=== PATIENT | female | born 1980 | race Caucasian/White ===

== ENCOUNTER → 2016-07-01 | Outpatient (CLI) | payer BC ==
[~2016-07-01] MED LIST: ACET-1311 PO; CETI10TA84 PO; FIBER TAB PO; IBUP-1050 PO; LEVO25CA2 PO; LEVOIUD TOP; MELO7.5T5 PO; MULT-506 PO; OMEG10007 PO; PRLSR20 PO; ZNTT/150 PO
[2016-07-01 13:48] LABS: BASO % 0.7 %; BASO ABS # 0.04 K/uL (0-0.2); COMPLETE YES; EOS % 1.4 %; HEMATOCRIT 38.8 % (37-47); LYMPH % 36.6 %; LYMPH ABS # 2.02 K/uL (1.2-3.4); MEAN CELL VOLUME 92.6 fL (80-100); MEAN CORPUSCULAR HEMOGLOBIN 29.8 pg (25-34); MEAN CORPUSCULAR HGB CONC 32.2 g/dl (32-36); MEAN PLATELET VOLUME 11.4 fL (7.4-10.4); MONO % 8.2 %; NEUT % 53.1 %; PLATELET COUNT 317 K/uL (130-400); RED BLOOD COUNT 4.19 M/uL (4.2-5.4); WHITE BLOOD COUNT 5.52 K/uL (4.8-10.8)
[2016-07-01 14:10] LABS: ALB/GLOB RATIO 1.1 (0.9-2); ALKALINE PHOSPHATASE 75 U/L (45-117); ALT/SGPT 22 U/L (12-78); AMYLASE 49 U/L (25-115); AST/SGOT 15 U/L (15-37); BLOOD UREA NITROGEN 8 mg/dl (7-18); BUN/CREATININE RATIO 10.9 (10-20); CALCIUM 9.2 mg/dl (8.5-10.1); CARBON DIOXIDE 28 mmol/L (21-32); CHLORIDE 107 mmol/L (98-107); CREATININE 0.77 mg/dl (0.60-1.20); GLUCOSE 79 mg/dl (70-99); POTASSIUM 3.7 mmol/L (3.5-5.1); SODIUM 142 mmol/L (136-145)
== END | disposition home or self-care (01) ==
LOC: C.LABSPEC 13:10
PROVIDERS: ATTEND Family Medicine
DX: R10.84 Generalized abdominal pain (principal)

== ENCOUNTER → 2016-12-26 | Outpatient (CLI) | payer BC ==
[2016-12-26 14:12] LABS: BASO % 0.4 %; BASO ABS # 0.03 K/uL (0-0.2); COMPLETE YES; EOS % 1.6 %; HEMATOCRIT 37.8 % (37-47); IG% 0.3 %; LYMPH % 27.8 %; LYMPH ABS # 2.21 K/uL (1.2-3.4); MEAN CELL VOLUME 88.1 fL (80-100); MEAN CORPUSCULAR HEMOGLOBIN 29.6 pg (25-34); MEAN CORPUSCULAR HGB CONC 33.6 g/dl (32-36); MONO % 6.3 %; NEUT % 63.6 %; PLATELET COUNT 319 K/uL (130-400); RED BLOOD COUNT 4.29 M/uL (4.2-5.4); WHITE BLOOD COUNT 7.94 K/uL (4.8-10.8)
[2016-12-26 14:44] LABS: LYME DISEASE AB IGG NEG (NEG); LYME DISEASE AB IGM NEG (NEG)
[2016-12-26 16:48] LABS: ALT/SGPT 22 U/L (12-78); BLOOD UREA NITROGEN 12 mg/dl (7-18); BUN/CREATININE RATIO 15.5 (10-20); CALCIUM 9.3 mg/dl (8.5-10.1); CARBON DIOXIDE 25 mmol/L (21-32); CHLORIDE 104 mmol/L (98-107); CHOLESTEROL 194 mg/dl (0-200); CREATININE 0.75 mg/dl (0.60-1.20); GLUCOSE 89 mg/dl (70-99); POTASSIUM 4.6 mmol/L (3.5-5.1); SODIUM 137 mmol/L (136-145); TRIGLYCERIDES 96 mg/dl (0-150); VERY LOW DENSITY LIPOPROT CALC 19 mg/dl
[2016-12-26 16:56] LABS: ALB/GLOB RATIO 0.9 (0.9-2); ALKALINE PHOSPHATASE 83 U/L (45-117); AST/SGOT 21 U/L (15-37); CHOLESTEROL/HDL RATIO 3.4; HDL CHOLESTEROL 57 mg/dl; LDL CHOLESTEROL CALCULATED 118 mg/dl
== END | disposition home or self-care (01) ==
LOC: C.LABSPEC 13:48
PROVIDERS: ATTEND Family Medicine
DX: Z00.00 Encounter for general adult medical examination without abnormal findings (principal); R12 Heartburn; R53.83 Other fatigue; E78.2 Mixed hyperlipidemia

== ENCOUNTER → 2017-01-26 | Outpatient (CLI) | payer BC ==
[2017-01-26 19:05] LABS: THYROID STIMULATING HORMONE 1.6 uIu/ml (0.300-4.500)
== END | disposition home or self-care (01) ==
LOC: C.LABSPEC 17:47
PROVIDERS: ATTEND Family Medicine
DX: E03.9 Hypothyroidism, unspecified (principal)

== ENCOUNTER 2017-03-03 09:57 | Observation (INO) | payer BC ==
[2017-02-07 14:34] VITALS: Ht 160 cm; Wt 99.2 kg
--- NOTE | 2017-02-07 15:05 | PAT Medication Instructions ---
Service Date Feb 07, 2017. Current Home Medication List Acetaminophen (Tylenol), 650 MG PO PRN Cetirizine (Zyrtec), 10 MG PO QAM Fish Oil (Carmel-3), 1 CAP PO QAM Ibuprofen (Advil), 800 MG PO PRN Levonorgestrel (Iud) (Mirena), 1 TOP IUD Levothyroxine Sodium (Tirosint), 25 MCG PO QAM Multivitamin (Multivitamin), 1 TAB PO HS Omeprazole (Prilosec), 20 MG PO QAM Ranitidine (Zantac), 150 MG PO QPM PRN for RN [Fiber Tab], 1 TAB PO QAM Medication Instructions For Your Scheduled Surgery Levonorgestrel (Iud) (Mirena), 1 TOP IUD (continue as directed) - Hold the following medications 2 weeks prior to surgery: Fish Oil (Carmel-3), 1 CAP PO QAM - Check with surgeon for instructions: Ibuprofen (Advil), 800 MG PO PRN - Hold the following medications the morning of surgery: Cetirizine (Zyrtec), 10 MG PO QAM [Fiber Tab], 1 TAB PO QAM - Take the following medications the morning of surgery with a sip of water: Omeprazole (Prilosec), 20 MG PO QAM Levothyroxine Sodium (Tirosint), 25 MCG PO QAM Acetaminophen (Tylenol), 650 MG PO PRN (okay to take up to 4 hours prior to surgery if needed) If you have any questions please call us at [phone] or [phone] or [phone]
[2017-02-07 15:35] LABS: PTT PATIENT 27.6 SECONDS (21.0-31.0)
--- NOTE | 2017-02-07 15:50 | DIAGNOSTIC IMAGING REPORT ---
CHEST 2 VIEWS ROUTINE CLINICAL HISTORY: 36 years-old Female presenting with preadmission chest x-ray. TECHNIQUE: PA and lateral views of the chest were obtained. COMPARISON: None. FINDINGS: Cardiomediastinal silhouette normal. Lungs and pleural spaces clear. Osseous structures normal. Cholecystectomy clips noted. IMPRESSION: 1. No acute cardiopulmonary disease. Electronically signed by: Adrian Malone M.D. 02/07/2017 3:48 PM Dictated Date/Time: 02/07/2017 3:47 PM
--- NOTE | 2017-03-02 19:38 | History and Physical ---
History & Physical Date Mar 02, 2017. Chief Complaint Left ankle pain and flat foot. History of Present Illness The patient is a 36 year old female with complaints of an 8-10 year hx of worsening flat foot of the left ankle/foot and increasing pain at the medial and lateral aspects of the hindfoot. She was treated conservatively with bracing and PT but failed conservative tx. She is now being set up for surgical tx. Past Medical/Surgical History PMH: HTN, hypercholesterolemia, hypothyroidism, acid reflux, obesity. Past surgical hx: cholecystectomy Social hx: denies tobacco use. Allergies Coded Allergies: Amoxicillin (Verified Allergy, Unknown, RASH RADHA UPSET, 02/07/17) Clavulanic Acid (Verified Allergy, Unknown, RASH GI UPSET, 02/07/17) Home Medications Scheduled Acetaminophen (Tylenol), 650 MG PO PRN Cetirizine (Zyrtec), 10 MG PO QAM Fish Oil (Pioneer-3), 1 CAP PO QAM Ibuprofen (Advil), 800 MG PO PRN Levonorgestrel (Iud) (Mirena), 1 TOP IUD Levothyroxine Sodium (Tirosint), 25 MCG PO QAM Multivitamin (Multivitamin), 1 TAB PO HS Omeprazole (Prilosec), 20 MG PO QAM [Fiber Tab], 1 TAB PO QAM Scheduled PRN Ranitidine (Zantac), 150 MG PO QPM PRN for RN Physical Examination Skin: warm/dry, no rash Eyes: normal inspection ENT: normal ENT inspection Head: normocephalic, atraumatic Neck: supple, no adenopathy, trachea midline Respiratory/Chest: lungs clear, normal breath sounds, no respiratory distress Cardiovascular: regular rate, rhythm, no edema, no murmur Abdomen / GI: normal bowel sounds, non tender Extremities: + pertinent finding (Left ankle: pes planovalgus deformity. Prominent medial navicular. Tender at the medial navicular and the sinus tarsi. Decreased left ankle ROM, particularly with dorsiflexion. Weakness with inversion.) Neurologic/Psych: no motor/sensory deficits, alert, oriented x 3 Diagnosis Left painful pes planovalgus deformity. Left accessory navicular bone Left achilles contracture Plan of Treatment Recommend a left Posterior tibial tendon advancement with Arthrex biotenodesis screw, resection accessory navicular, medializing calcaneal osteotomy, lateral column lengthening with autograft, left iliac crest bone graft harvest, perc. TAMIKO. All potential risks, benefits, complications, alternatives, and rehab have been discussed with the patient and she wishes to proceed. She will be scheduled for 03.03.17. ASA 81 mg BID x 6 wks for DVT prophylaxis.
[~2017-03-03] VITALS: Ht 160 cm; Wt 99.2 kg
--- NOTE | 2017-03-03 09:49 | History & Physical Bridge Note ---
H&P Re-Evaluation Bridge Note: I have examined the patient, reviewed the History & Physical and in the interval since the performance of the History & Physical I have noted the following changes of clinical significance: No changes noted
[~2017-03-03 09:57] MED LIST changes: +ATROPINE SULFATE 0.1 MG/ML 5ML SYR IV PRN; +BUPIVACAINE 0.5 % 5 MG/1 ML PF 10ML VIAL ONE; +CLINDAMYCIN 600 MG/54 ML D5W IV SCH; +EpHEDrine SULFATE INJ 50 MG/ML AMP IV PRN; +LABETALOL HCL IV 5 MG/ML 20ML IV PRN; +LACTATED RINGER'S 1000ML 1,000 ML IV SCH; +LEVO1IUD2 TOP; -LEVOIUD TOP; -MELO7.5T5 PO; +MEPERIDINE HCL 25 MG/ML CARP IV PRN; +ONDANSETRON INJ 2 MG/ML 2 ML VIAL IV PRN
[2017-03-03 10:25] VITALS: BP 135/94; PULSE 82; TEMP 36.8; O2SAT 94
[2017-03-03 10:45] LABS: BASO % 0.4 %; BASO ABS # 0.03 K/uL (0-0.2); EOS % 1.5 %; HEMATOCRIT 35.9 % (37-47); HEMOGLOBIN 12.2 g/dL (12.0-16.0); LYMPH % 29.7 %; LYMPH ABS # 2.04 K/uL (1.2-3.4); MEAN CELL VOLUME 87.6 fL (80-100); MEAN CORPUSCULAR HEMOGLOBIN 29.8 pg (25-34); MEAN PLATELET VOLUME 10.7 fL (7.4-10.4); MONO % 6.3 %; MONO ABS # 0.43 K/uL (0.11-0.59); NEUT % 62.1 %; NEUT ABS # 4.26 K/uL (1.4-6.5); PLATELET COUNT 288 K/uL (130-400); RED CELL DISTRIBUTION WIDTH CV 13.5 % (11.5-14.5); RED CELL DISTRIBUTION WIDTH SD 43.2 fL (36.4-46.3); WHITE BLOOD COUNT 6.86 K/uL (4.8-10.8)
[2017-03-03 11:08] LABS: CALCIUM 8.6 mg/dl (8.5-10.1); CREATININE 0.7 mg/dl (0.60-1.20); POTASSIUM 3.8 mmol/L (3.5-5.1)
[2017-03-03] MEDS ORDERED: DEXAMETHASONE SOD INJ 4 MG/ML VIAL ONE (11:13)
[2017-03-03] MEDS ORDERED: ONDANSETRON INJ 2 MG/ML 2 ML VIAL ONE (11:13)
[2017-03-03] MEDS ORDERED: MIDAZOLAM HCL 1 MG/ML 2ML VIAL ONE (11:13)
[2017-03-03] MEDS ORDERED: PROPOFOL IV EMULSION 10 MG/ML 20 ML VIAL IV ONE ×3 (11:13→16:02)
[2017-03-03] MEDS ORDERED: ROCURONIUM BROMIDE 10 MG/ML 5 ML VIAL IV ONE (11:13)
[2017-03-03] MEDS ORDERED: FENTANYL CITRATE INJ 50 MCG/1 ML 2 ML VIAL ONE ×5 (11:13→18:04)
[2017-03-03] MEDS ORDERED: BACITRACIN 50000 UNIT VIAL ONE (13:15)
[2017-03-03] MEDS ORDERED: GELATIN SPONGE SZ 100 ONE ×2 (13:16→13:51)
[2017-03-03] MEDS ORDERED: THROMBIN FOR SOLN 20000 UNIT KIT ONE (13:16)
[2017-03-03] MEDS ORDERED: HYDROmorphone INJ 2 MG/ML SYR/VIAL ONE (13:52)
[2017-03-03] MEDS ORDERED: BUPIVACAINE/EPINEPHRINE 0.5% MPF 1:200,000 30 ML VIAL ONE (14:05)
--- NOTE | 2017-03-03 15:41 | DIAGNOSTIC IMAGING REPORT ---
ADDENDUM Additional images were performed following completion of the prior examination. Total fluoroscopy time is 28 seconds. 6 fluoroscopic spot images are identified. There again noted 2 screws through the calcaneal osteotomy. There is also a vinny overlying the midfoot. Electronically signed by: Raheem Mijares M.D. 03/03/2017 4:34 PM Dictated Date/Time: 03/03/2017 4:32 PM ORIGINAL REPORT L ANKLE 2 VIEWS CLINICAL HISTORY: Calcaneal reconstruction. COMPARISON STUDY: None. FINDINGS: Total fluoroscopy time is 22 seconds. 3 fluoroscopic spot images of the ankle. There are 2 screws transfixing the calcaneal fracture. The hardware appears intact. The alignment is near-anatomic. There are posterior skin gamal. IMPRESSION: Fluoroscopy provided for calcaneal reconstruction. Electronically signed by: Raheem Mijares M.D. 03/03/2017 3:40 PM Dictated Date/Time: 03/03/2017 3:39 PM
[2017-03-03] MEDS: FENTANYL CITRATE INJ 50 MCG/1 ML 2 ML VIAL IV PRN ×3 (16:42→16:55)
--- NOTE | 2017-03-03 16:48 | [facility] Post Operative Brief Note ---
Immediate Operative Summary Operative Date Mar 03, 2017. Pre-Operative Diagnosis Left Posterior Tibial Tendon Dysfunction Left painful pes planovalgus deformity. Left accessory navicular bone Left achilles contracture Post-Operative Diagnosis Left Posterior Tibial Tendon Dysfunction Left painful pes planovalgus deformity. Left accessory navicular bone Left achilles contracture Procedure(s) Performed 1. Left Ankle Posterior Tibial Tendon Advancement with Arthrex Biotenodesis Screw 2. Resection Accessory Navicular 3. Lateral Column Lengthening with Autograft 4. Medializing Calcaneal Osteotomy 5. Percutaneous TendoAchilles Lengthening 6. Left Iliac Crest Bone Graft [place] Surgeon Dr. Felipe Wilson Pump Stitcher Surgeon(s) Hitesh Seth PA-C Estimated Blood Loss 5cc Findings See Dict Specimens none per surgeon Drains None Anesthesia GLMA w/ popliteal block Complication(s) None Disposition Recovery Room / PACU
[2017-03-03] MEDS ORDERED: NO NSAIDS SCH (17:00)
[2017-03-03] MEDS ORDERED: ONDANSETRON INJ 2 MG/ML 2 ML VIAL IV PRN (17:00)
[2017-03-03] MEDS ORDERED: MAGNESIUM HYDROXIDE SUSP 30 ML UDC PO PRN (17:00)
[2017-03-03] MEDS ORDERED: RANITIDINE HCL 150 MG TAB PO PRN (17:00)
[2017-03-03] MEDS ORDERED: MoRPHine SULFATE 4 MG/ML 1 ML CARP\\VIAL IV PRN (17:00)
[2017-03-03] MEDS ORDERED: LEVONORGESTREL TOP SCH (17:00)
[2017-03-03] MEDS: HYDROmorphone INJ 1 MG/ML SYR IV PRN ×4 (17:15→17:36)
--- NOTE | 2017-03-03 17:53 | DIAGNOSTIC IMAGING REPORT ---
L ANKLE 2 VIEWS CLINICAL HISTORY: post-op CALCANEAL OSTEOTOMY COMPARISON: None. DISCUSSION: The fine bony details obscured by overlying plaster cast. There are postsurgical changes of a calcaneal osteotomy which has been fixated with 2 screws. IMPRESSION: Postsurgical changes of a calcaneal osteotomy which has been fixated with 2 screws. Electronically signed by: Lopez Tsang M.D. 03/03/2017 5:52 PM Dictated Date/Time: 03/03/2017 5:52 PM
--- NOTE | 2017-03-03 17:53 | DIAGNOSTIC IMAGING REPORT ---
L FOOT MIN 3 VIEWS ROUTINE CLINICAL HISTORY: Postoperative examination COMPARISON: None. DISCUSSION: 3 views are provided for interpretation. The fine bony details obscured by an overlying plaster cast. 2 screws are visualized within the calcaneus. There is evidence of a calcaneal osteotomy. IMPRESSION: Postsurgical changes of a calcaneal osteotomy with 2 calcaneal screws Electronically signed by: Lopez Tsang M.D. 03/03/2017 5:51 PM Dictated Date/Time: 03/03/2017 5:50 PM
--- NOTE | 2017-03-03 17:54 | Anesthesiology Progress Note ---
Anesthesia Post Op Note Date & Time Mar 03, 2017 at 17:53 Vital Signs Pain Intensity: 5 Vital Signs Past 12 Hours Date Time Temp Pulse Resp B/P (MAP) Pulse Ox O2 Delivery O2 Flow Rate FiO2 03/03/17 17:40 36.6 91 12 142/76 100 Nasal Cannula 2 03/03/17 17:30 99 12 144/81 100 Nasal Cannula 2 03/03/17 17:20 102 14 125/81 100 Nasal Cannula 2 03/03/17 17:10 106 15 122/86 100 Nasal Cannula 2 03/03/17 17:00 97 12 121/87 100 Oxymask 10 03/03/17 16:50 98 10 139/93 100 Oxymask 10 03/03/17 16:40 104 16 130/87 100 Oxymask 10 03/03/17 16:30 36.4 99 14 131/94 99 Oxymask 10 03/03/17 10:25 36.8 82 16 135/94 (108) 94 Room Air Notes Mental Status: alert / awake / arousable, participated in evaluation Pt Amnestic to Procedure: Yes Nausea / Vomiting: adequately controlled Pain: adequately controlled Airway Patency, RR, SpO2: stable & adequate BP & HR: stable & adequate Hydration State: stable & adequate Anesthetic Complications: no major complications apparent
--- NOTE | 2017-03-03 18:26 | OPERATIVE REPORT ---
DATE OF OPERATION: 03/03/2017 PREOPERATIVE DIAGNOSES: 1. Left posterior tibial tendon dysfunction grade 2. 2. Accessory navicular. 2. Achilles contracture. 3. Pes planus. 4. Left foot pain. POSTOPERATIVE DIAGNOSES: Same. PROCEDURE: 1. Left posterior tibial tendon advancement with the Arthrex Bio-Tenodesis screw. 2. Resection of accessory navicular. 3. Medializing calcaneal osteotomy with screw fixation. 4. Lateral column lengthening of the calcaneus with autograft 5. Percutaneous tendon Achilles lengthening. 6. Left iliac crest bone graft harvest. SURGEON: Felipe Wilson DO. AERONAUTICAL ENGINEER: Hitesh Seth PA-C, who was present for patient positioning, sterile prep and drape, management of retractors and instruments. He was present through the critical portions of the case including wound closure, application of sterile dressing and transport of the patient to recovery. ANESTHESIA: General LMA with popliteal block. SPECIMENS: None. DRAINS: None. COMPLICATIONS: None. BLOOD LOSS: 5 mL. PERTINENT HISTORY: This is a 36-year-old woman who had progressive chronic painful left hindfoot pain and deformity. She has attempted and failed conservative management for the last several years including shoe modification, activity modification, shoe inserts, anti-inflammatories, rest, physician directed home exercises, ultrasound and use of a brace. She also had an MRI which demonstrated chronic changes associated to the posterior tibial tendon. The patient was then scheduled for surgery as indicated. All potential risks, benefits, complications, alternatives, rehab, potential for incomplete relief of symptoms, need for further surgery, DVT, PE, , persistent pain, swelling, scarring, weakness, neurovascular injury, wound complications, hardware failure, nonunion, malunion, need for further surgery discussed with the patient. The patient decided to proceed with procedure as indicated. DESCRIPTION OF PROCEDURE: After popliteal block was administered in the preop holding area, the patient was then taken to the operative suite, placed supine on the operating room table. After reviewing the consent and identification of proper operative site, the patient was anesthetized, LMA was placed. Tourniquet was placed high on the left thigh over cast padding. Next, the left iliac crest and left lower extremity were then sterilely prepped and draped in usual fashion, elevated, and exsanguinated with an Esmarch bandage and tourniquet inflated to 350 mmHg. Next, the left foot was held in neutral dorsiflexion and a 3-part percutaneous tendon Achilles lengthening was then performed with 11 blade scalpel. Next, the small stab incision was then closed using a skin stapler. Next, a 15 blade scalpel was used to make an incision in oblique fashion on the posterolateral aspect of the calcaneal tuberosity at which point, a 15 blade was then used to deepen this oblique skin incision through the subcutaneous tissue to the level of the periosteum. Next, Hohmann retractors were placed both superior, posterior and inferior in the lateral aspect of the calcaneus. The periosteum was then sharply elevated with a 15 blade scalpel and a Torres elevator followed by creation of a sliding osteotomy of the calcaneus. The calcaneus was then shifted medially approximately 4-5 mm and then fixed in place with a single 7.3 mm, cannulated screw placed under live fluoroscopic assistance. This was placed through a small stab incision in the tuberosity of the heel. This was then irrigated with sterile normal saline and a small stab incision in the heel was then closed using skin stable. Next, the 15 blade was used to make an incision centered over the anterior process of the calcaneus extending proximally and distally. This incision was then deepened through subcutaneous tissue. Meticulous hemostasis was achieved with electrocautery. Full thickness skin flaps were developed. The extensor digitorum brevis then incised in line with skin incision and then elevated both superiorly and inferiorly. The sinus tarsi was then entered and a Hohmann retractor was placed in the sinus tarsi followed by placement of Bell retractor between the peroneal tendons and the calcaneus. Next, an osteotomy line was then measured approximately 1.5 cm proximal to the calcaneal cuboid joint and then a sagittal saw was then used to create an osteotomy in the lateral aspect of the calcaneus. Next, 2 smooth osteotomes then placed into the osteotomy site opening the osteotomy and then a cervical lamina underwear trimmer was then placed into the osteotomy. Next, the foot was held in neutral dorsiflexion and the appropriate opening wedge for the lateral calcaneal osteotomy was then measured and noted to be an 8 mm wedge. Next, a moist lap was then placed over the lateral aspect of the left foot. A 22 gauge needle was then used to inject approximately 12 mL of 0.5% Marcaine with epinephrine into the left iliac crest region followed by incision with 15 blade scalpel and use of electrocautery to maintain hemostasis. Next, the fascia was then incised in line with the incision, retracted with a Josiahtlaner retractor revealing the iliac crest. Next, a trapezoidal iliac crest autograft was then measured and then resected using a sagittal saw. This wound was irrigated with sterile normal saline, Gelfoam and thrombin were placed into the harvest site and cancellous bone was then also harvested from the iliac crest and placed in a small sterile cup. Next, after the Gelfoam and thrombin were placed into the void in the left iliac crest. The fascia was then closed using interrupted #1 Vicryl sutures followed by injection into the graft harvest site with 1 mL of Duramorph and 4 mL 0.5% Marcaine with epinephrine. Next, the irrigation was performed of the left iliac crest followed by closure of the dermis with 2-0 Vicryl sutures and then closure of the skin with Monocryl, Dermabond and Adaptic gauze. Next, sterile compressive dressing was applied overwrapped with a Tegaderm. Next, this trapezoidal graft was then placed in the lateral column lengthening site, lateral calcaneus was impacted in place with a bone tamp and mallet, followed by bone grafting with surrounding cancellous bone graft. This was then followed by carefully irrigation with sterile normal saline and closure of the extensor digitorum brevis over the graft site with 2-0 Vicryl suture. The peroneal tendons were unaffected by the procedure. Next, the dermis was then closed using buried interrupted 3-0 Vicryl and skin was closed with 4-0 nylon. Next, the heel slide osteotomy site was then irrigated with sterile normal saline and the dermis was closed using buried interrupted 3-0 Vicryl, skin was closed using 4-0 nylon. Next, the 15 blade was then used to make an incision over the medial aspect of the foot at the distal aspect of the posterior tibial tendon insertion. This incision was deepened through subcutaneous tissue. Meticulous hemostasis was achieved with electrocautery. Full thickness skin flaps were developed followed by use of electrocautery to cauterize crossing vessels at the incision site. Next, the flexor tendon sheath of the posterior tibial tendon was then incised to the level of the navicula. Next, the posterior tibial tendon was then sharply elevated from the medial navicula with a 15 blade scalpel. There was noted to be significant damage and scarring of the distal aspect of the posterior tibial tendon with hypertrophic tendonopathy of the posterior tibial tendon. Next, the accessory navicular noted within the posterior tibial tendon was then carefully shelled out of the tendon. This was then passed off. The wound was copiously irrigated with sterile normal saline followed by tubularization of the posterior tibial tendon with a 2-0 FiberWire suture using a Krackow locking loop stitch. This was then passed through a 7 mm graft sizer and then the medial aspect of the navicular was then rongeured and decorticated with a rongeur. This was irrigated with sterile normal saline followed by placement of a Beath pin under live fluoroscopic assistance noting the correct location to the medial navicular. This was passed through and through the navicular and the tails of the suture passed into the posterior tibial tendon were then passed through the eyelet of the Beath pin which was then driven through and through the navicular at the dorsum of the foot and then withdrawn. Next, the tendon was marked at 10, 15 and 20 mm depth and after drilling of a 23 mm transport pilot hole in the medial navicular, the tendon was then passed into the medial navicular under tension and clear visualization noting approximately 20 mm of tendon into the medial navicular. This was then stabilized using a single 7 mm x 23 mm Arthrex Bio-Tenodesis screw. Next, the lateral column screw was then placed using a 2.5 mm lag screw technique with a fully threaded 4.0 cancellous screw placed through the lateral aspect at the calcaneus under live fluoroscopic assistance. Next, final irrigation was performed with sterile normal saline. The medial incision was then closed using 2-0 Vicryl to close the flexor tendon sheath. The dermis was closed using buried interrupted 3-0 Vicryl, skin was closed with 4-0 nylon. A small lateral incision was then closed with 4-0 nylon. Next, final x-rays obtained. Sterile compressive dressing was applied followed by placement of bulky Kimani Tidwell plaster splint. The foot was held in slight gravity equinus until firm and then the tourniquet was released, and the patient was awakened and taken to recovery in stable condition. I attest to the content of the Intraoperative Record and any orders documented therein. Any exception s are noted below.
[2017-03-03 18:30] VITALS: BP 116/74; PULSE 95; TEMP 36.8; O2SAT 100
[2017-03-03] MEDS ORDERED: MoRPHine SULFATE 4 MG/ML 1 ML CARP\\VIAL ONE (18:51)
[2017-03-03 19:10] VITALS: BP 132/83; PULSE 97; TEMP 36.5; O2SAT 100
[2017-03-03] MEDS ORDERED: HYDROmorphone INJ 1 MG/ML SYR IV PRN (19:45)
[2017-03-03] MEDS ORDERED: KETOROLAC TROMETHAMINE 30 MG/ML VIAL IV ONE (20:00)
[2017-03-03 20:27] VITALS: BP 115/77; PULSE 100; TEMP 36.6; O2SAT 100
[2017-03-03] MEDS: POTASSIUM CHLORIDE INJ 10 MEQ in SODIUM CHLORIDE 0.9% 1000ML 1,000 ML IV SCH (20:49)
[2017-03-03] MEDS: DOCUSATE SODIUM 100 MG CAP PO SCH (20:51)
[2017-03-03] MEDS: ACETAMINOPHEN IV 1,000 MG in EMPTY BAG 0 ML IV SCH (20:52)
[2017-03-03] MEDS ORDERED: MULTIVITAMIN TAB PO SCH (21:00)
[2017-03-03] MEDS: CLINDAMYCIN IV 600 MG in DEXTROSE 5% 50ML 50 ML IV SCH (21:30)
[2017-03-03 21:39] VITALS: BP 110/77; PULSE 89; TEMP 36.5; O2SAT 96
[2017-03-03 23:05] VITALS: BP 104/69; PULSE 86; TEMP 36.6; O2SAT 100
[2017-03-03] MEDS: OXYCODONE HCL IR 5 MG TAB (IMMEDIATE RELEASE) PO PRN (23:27)
[2017-03-04 03:45] VITALS: BP 106/69; PULSE 78; TEMP 36.6; O2SAT 99
[2017-03-04] MEDS: ACETAMINOPHEN IV 1,000 MG in EMPTY BAG 0 ML IV SCH ×2 (03:52→12:01)
[2017-03-04] MEDS: OXYCODONE HCL IR 5 MG TAB (IMMEDIATE RELEASE) PO PRN ×3 (04:52→13:07)
[2017-03-04] MEDS ORDERED: LEVOTHYROXINE 25 MCG TAB PO SCH (06:00)
[2017-03-04 06:06] LABS: HEMATOCRIT 32.9 % (37-47); HEMOGLOBIN 10.8 g/dL (12.0-16.0); MEAN CELL VOLUME 88.9 fL (80-100); MEAN CORPUSCULAR HEMOGLOBIN 29.2 pg (25-34); MEAN CORPUSCULAR HGB CONC 32.8 g/dl (32-36); MEAN PLATELET VOLUME 10.8 fL (7.4-10.4); PLATELET COUNT 261 K/uL (130-400); RED CELL DISTRIBUTION WIDTH CV 13.7 % (11.5-14.5); RED CELL DISTRIBUTION WIDTH SD 44.6 fL (36.4-46.3); WHITE BLOOD COUNT 11.35 K/uL (4.8-10.8)
[2017-03-04] MEDS: CLINDAMYCIN IV 600 MG in DEXTROSE 5% 50ML 50 ML IV SCH (06:07)
[2017-03-04] MEDS: POTASSIUM CHLORIDE INJ 10 MEQ in SODIUM CHLORIDE 0.9% 1000ML 1,000 ML IV SCH (06:07)
[2017-03-04 06:32] VITALS: O2SAT 94
[2017-03-04 07:35] VITALS: BP 105/68; PULSE 79; TEMP 36.8; O2SAT 98
--- NOTE | 2017-03-04 08:38 | Orthopedic Progress Note ---
Orthopedic Progress Note Date of Service Mar 04, 2017. Subjective Post OP Day: 1 Reports: feeling well, chest pain Additional Notes: States her pain control is better today. Most of her pain is on the medial aspect of the dressing. No other complaints. Hoping to go home today Objective N/V intact, splint C/D/I, capillary refill less than 2 sec., dressing C/D/I, A& O x3, toes mobile Left iliac crest dressing intact Date Time Temp Pulse Resp B/P (MAP) Pulse Ox O2 Delivery O2 Flow Rate FiO2 03/04/17 07:50 Room Air 03/04/17 07:35 36.8 79 16 105/68 (80) 98 Room Air 03/04/17 06:32 94 Room Air 03/04/17 03:45 36.6 78 16 106/69 (81) 99 Nasal Cannula 2.0 03/03/17 23:30 Nasal Cannula 2.0 03/03/17 23:05 36.6 86 16 104/69 (81) 100 Nasal Cannula 2.0 03/03/17 21:39 36.5 89 18 110/77 (88) 96 Nasal Cannula 2.0 03/03/17 20:27 36.6 100 18 115/77 (90) 100 Nasal Cannula 2.0 03/03/17 19:10 36.5 97 18 132/83 (99) 100 Nasal Cannula 2.0 03/03/17 18:30 100 Nasal Cannula 2.0 03/03/17 18:30 36.8 95 16 116/74 (88) 100 Nasal Cannula 2.0 03/03/17 18:30 100 Nasal Cannula 2.0 03/03/17 18:15 96 12 114/80 100 Nasal Cannula 2 03/03/17 18:00 96 12 129/76 100 Nasal Cannula 2 03/03/17 17:50 96 12 113/76 100 Nasal Cannula 2 03/03/17 17:40 36.6 91 12 142/76 100 Nasal Cannula 2 03/03/17 17:30 99 12 144/81 100 Nasal Cannula 2 03/03/17 17:20 102 14 125/81 100 Nasal Cannula 2 03/03/17 17:10 106 15 122/86 100 Nasal Cannula 2 03/03/17 17:00 97 12 121/87 100 Oxymask 10 03/03/17 16:50 98 10 139/93 100 Oxymask 10 03/03/17 16:40 104 16 130/87 100 Oxymask 10 03/03/17 16:30 36.4 99 14 131/94 99 Oxymask 10 03/03/17 10:25 36.8 82 16 135/94 (108) 94 Room Air Laboratory Results 24 Hours: Test 03/03/17 10:32 03/04/17 05:33 White Blood Count 6.86 K/uL Red Blood Count 4.10 M/uL Hemoglobin 12.2 g/dL 10.8 g/dL Hematocrit 35.9 % 32.9 % Mean Corpuscular Volume 87.6 fL Mean Corpuscular Hemoglobin 29.8 pg Mean Corpuscular Hemoglobin Concent 34.0 g/dl Platelet Count 288 K/uL Mean Platelet Volume 10.7 fL Neutrophils (%) (Auto) 62.1 % Lymphocytes (%) (Auto) 29.7 % Monocytes (%) (Auto) 6.3 % Eosinophils (%) (Auto) 1.5 % Basophils (%) (Auto) 0.4 % Neutrophils # (Auto) 4.26 K/uL Lymphocytes # (Auto) 2.04 K/uL Monocytes # (Auto) 0.43 K/uL Eosinophils # (Auto) 0.10 K/uL Basophils # (Auto) 0.03 K/uL Assessment & Plan Assessment: POD 1 s/p 1. Left posterior tibial tendon advancement with the Arthrex Bio- Tenodesis screw. 2. Resection of accessory navicular. 3. Medializing calcaneal osteotomy with screw fixation. 4. Lateral column lengthening of the calcaneus with autograft 5. Percutaneous tendon Achilles lengthening. 6. Left iliac crest bone graft harvest Plan: PT/OT today Plan for dc to home if pain controlled Inhouse Planning Pain Management: Dilaudid, PO Tylenol, Oxy IR DVT Prophylaxis: TEDs, SCDs, ASA Discharge Planning Discharge Planning: home Pain Management: Oxy IR DVT Prophylaxis: ASA
[2017-03-04] MEDS ORDERED: ASPIRIN 81 MG ECTAB PO SCH (09:00)
[2017-03-04] MEDS ORDERED: PANTOprazole SOD 40 MG TAB PO SCH (09:00)
[2017-03-04] MEDS ORDERED: CALCIUM POLYCARBOPHIL 1 TAB PO SCH (09:00)
[2017-03-04] MEDS: DOCUSATE SODIUM 100 MG CAP PO SCH (09:02)
[2017-03-04] MEDS ORDERED: RXC5 PO (09:03)
[2017-03-04] MEDS ORDERED: ASPEC81 PO (09:03)
[2017-03-04] MEDS ORDERED: PROM25TA9 PO (09:03)
[2017-03-04] MEDS ORDERED: OXYSR10 PO (09:03)
--- NOTE | 2017-03-04 09:11 | Discharge Instructions ---
Discharge Instructions Date of Service Mar 04, 2017. Admission Reason for Admission: Left Ankle Short Achilles Tendon, Pes Planus, Plan Discharge Discharge Diagnosis / Problem: Left Posterior Tibial Tendon Dysfunction Discharge Goals Goal(s): Decrease discomfort, Improve function, Increase independence Activity Recommendations Activity Limitations: per Instructions/Follow-up section Weightbearing Status: Left non-weightbearing . Instructions / Follow-Up Instructions / Follow-Up ACTIVITY RECOMMENDATIONS: Limitations: No weight bearing to affected limb at all times. SPECIAL CARE INSTRUCTIONS: * You can change your left hip dressing in 48 hours. Keep covered with gauze. Trim mesh as it slowly peels off. * Some drainage onto the dressing is normal and is no cause for alarm. * Some swelling is natural especially after walking. * When resting, keep your foot elevated above the level of your heart. * Call [facility] if you notice: -Increased drainage -Fever over 101 degrees F -Severe constant pain BANDAGE: * Leave bandage/cast in place unless otherwise directed. * Keep bandage/cast dry at all times. FOLLOW UP VISIT WITH DR. VILLANUEVA If appointment is not already scheduled: Please call [facility] after you get home today to schedule a follow-up appointment for [address] Villanueva at . Current Hospital Diet Patient's current hospital diet: Regular Diet Discharge Diet Recommended Diet: Regular Diet Procedures Procedures Performed: 1. Left Ankle Posterior Tibial Tendon Advancement with Arthrex Biotenodesis Screw 2. Resection Accessory Navicular 3. Lateral Column Lengthening with Autograft 4. Medializing Calcaneal Osteotomy 5. Percutaneous TendoAchilles Lengthening 6. Left Iliac Crest Bone Graft Belt Pending Studies Studies pending at discharge: no Laboratory Results Lipid Panel Test 12/26/16 09:00 Range/Units Triglycerides Level 96 0-150 mg/dl Cholesterol Level 194 0-200 mg/dl HDL Cholesterol 57 mg/dl Cholesterol/HDL Ratio 3.4 LDL Cholesterol, Calculated 118 mg/dl Medical Emergencies . Who to Call and When: Medical Emergencies: If at any time you feel your situation is an emergency, please call 911 immediately. . Non-Emergent Contact Non-Emergency issues call your: Surgeon Call Non-Emergent contact if: temperature is above 101.5, your pain is not controlled, your pain is worsening, wound has increased drainage, wound has increased redness . "Provider Documentation" section prepared by Hitesh Seth. . VTE Core Measure Inpt VTE Proph given/why not?: Other Anticoagulation [place] Drug Monitoring Program Search Results: patient reviewed within database, no issues identified
[2017-03-04] MEDS ORDERED: ACET-24 PO (10:03)
[2017-03-04 11:32] VITALS: BP 123/81; PULSE 90; TEMP 36.7; O2SAT 95
[2017-03-04 12:52] VITALS: BP 123/81; PULSE 90; TEMP 36.7; O2SAT 95
--- NOTE | 2017-03-05 11:14 | DISCHARGE SUMMARY ---
DISCHARGE DIAGNOSES: Left posterior tibial tendon dysfunction with left painful pes planovalgus deformity, left accessory navicular bone and left Achilles tendon contracture. SECONDARY DIAGNOSES: Hypertension, hypercholesterolemia, hypothyroidism, GERD, obesity. CONSULTS: None. COMPLICATIONS: None. PROCEDURES: 1. Left ankle posterior tibial tendon advancement with Arthrex Bio-Tenodesis screw. 2. Resection of accessory navicular. 3. Lateral column lengthening with autograft. 4. Medializing calcaneal osteotomy. 4. Percutaneous tendo-Achilles lengthening. 5. Left iliac crest bone graft harvesting. BRIEF HISTORY: As dictated in the history and physical. HOSPITAL SUMMARY: The patient was admitted on the above-noted date with the above noted surgery and had the above-noted surgery performed, which she tolerated well. On her first postoperative day, she was stating that her pain control was much better, most of her pain was on the medial aspect of the dressing. She had no other complaints. She was hoping to go home. Neurovascularly, she was intact. Splint was clean, dry and intact. Cap refill is less than 2 seconds. Dressings clean, dry and intact. Toes were mobile. Left iliac crest dressing was intact and benign in appearance. Vital signs were stable. She was afebrile. Hemoglobin was 10.8 and she was started on physical therapy protocol, nonweightbearing on the affected extremity. She remained with adequate pain control and progressed with her PT and it was felt she could be discharged to home and was discharged to home on 03/04/2017. For further review, please see chart. LABORATORY AND X-RAY DATA: As per chart. DISCHARGE INSTRUCTIONS: The patient was discharged to home in satisfactory condition on 03/04/2017. DIET: Regular. ACTIVITY: Weightbearing as tolerated on the left lower extremity. Follow activity recommendation and special care instructions as noted and follow up with Dr. Wilson in 2 weeks. The patient to call for appointment if one has not been made for you. DISCHARGE MEDICATIONS: Acetaminophen 2 tabs p.o. q. 8 hours for 14 days, aspirin 81 mg p.o. daily for 30 days, oxycodone 5-10 mg p.o. q. 4 hours p.r.n., OxyContin 10 mg p.o. b.i.d., Phenergan 25 mg p.o. q. 6 hours p.r.n. nausea. Resume home meds as listed and stop taking her original acetaminophen dosage and ibuprofen.
== END 2017-03-04 13:45 | disposition home or self-care (01) ==
LOC: C.ACU 09:57 → C.3E 10:15 → ENRESERV 17:36
PROVIDERS: ADMIT Orthopaedic Surgery Sports Medicine; ATTEND Orthopaedic Surgery Sports Medicine
DX: M21.41 Flat foot [pes planus] (acquired), right foot (principal); M67.02 Short Achilles tendon (acquired), left ankle; I10 Essential (primary) hypertension; E78.00 Pure hypercholesterolemia, unspecified; E03.9 Hypothyroidism, unspecified; K44.9 Diaphragmatic hernia without obstruction or gangrene; E78.5 Hyperlipidemia, unspecified; M19.90 Unspecified osteoarthritis, unspecified site; K21.9 Gastro-esophageal reflux disease without esophagitis; E66.9 Obesity, unspecified; Z90.49 Acquired absence of other specified parts of digestive tract

== ENCOUNTER 2017-03-28 14:09 | Emergency (ER) | payer BC ==
[~2017-03-28] VITALS: Ht 157.5 cm; Wt 97.1 kg
[~2017-03-28 14:09] MED LIST changes: -RIVA1.5T PO; -TRAM-10 PO
[2017-03-28 14:15] VITALS: Ht 157.5 cm; Wt 97.1 kg
[2017-03-28] MEDS ORDERED: TRAM-10 PO (14:41)
[2017-03-28 14:43] LABS: BASO % 0.3 %; BASO ABS # 0.03 K/uL (0-0.2); EOS % 0.7 %; EOS ABS # 0.08 K/uL (0-0.5); HEMATOCRIT 37.8 % (37-47); HEMOGLOBIN 12.7 g/dL (12.0-16.0); IG# 0.03 K/uL (0.00-0.02); LYMPH % 16.8 %; LYMPH ABS # 1.94 K/uL (1.2-3.4); MEAN CELL VOLUME 87.1 fL (80-100); MEAN CORPUSCULAR HEMOGLOBIN 29.3 pg (25-34); MEAN CORPUSCULAR HGB CONC 33.6 g/dl (32-36); MEAN PLATELET VOLUME 10.6 fL (7.4-10.4); MONO ABS # 0.69 K/uL (0.11-0.59); NEUT % 75.9 %; NEUT ABS # 8.75 K/uL (1.4-6.5); PLATELET COUNT 319 K/uL (130-400); RED CELL DISTRIBUTION WIDTH CV 13.5 % (11.5-14.5); WHITE BLOOD COUNT 11.52 K/uL (4.8-10.8)
[2017-03-28 14:53] LABS: PTT PATIENT 29.6 SECONDS (21.0-31.0)
[2017-03-28 15:01] LABS: CALCIUM 9.3 mg/dl (8.5-10.1); CREATININE 0.75 mg/dl (0.60-1.20); POTASSIUM 3.8 mmol/L (3.5-5.1)
[2017-03-28] MEDS ORDERED: RIVAROXABAN TAB 15 MG TAB PO ONE (15:30)
[2017-03-28] MEDS ORDERED: RIVA1.5T PO (15:30)
[2017-03-28 15:42] VITALS: BP 135/84; PULSE 92; TEMP 37.6; O2SAT 99
--- NOTE | 2017-03-28 19:37 | EMERGENCY ROOM VISIT NOTE ---
History Report prepared by John: Frandy Lfaleur Under the Supervision of: Dr. Brenden Meyers D.O. First contact with patient: 14:19 Chief Complaint: CALF PAIN Stated Complaint: PAIN IN FOOT/CALF, BLOOD CLOT, SENT FROM ULTR History of Present Illness The patient is a 36 year old female who presents to the Emergency Room with complaints of constant left calf pain beginning four days ago. She recently had surgery on her left ankle to lengthen her Achilles tendon a little less than a month ago. She states that she was found to have DVT of the left leg by US today during a follow up appointment with orthopedics. The patient notes that she has an extensive family history of DVT. She denies any recent falls or trauma. She has no history of brain bleeding, coughing up blood, vomiting blood , or hematuria. Pt denies headache, change in vision, fevers, chest pain, shortness of breath, nausea, vomiting, diarrhea, pain with urination, and melena. Source of History: patient Onset: Four days ago Position: leg (left calf) Timing: constant Associated Symptoms: No fevers, No headache, No chest pain, No SOB, No nausea, No vomiting, No melena, No hematochezia, No diarrhea, No urinary symptoms Review of Systems See HPI for pertinent positives & negatives. A total of 10 systems reviewed and were otherwise negative. Past Medical & Surgical Medical Problems: (1) Accessory navicular bone of left foot (2) Achilles tendon contracture, left (3) Left foot pain (4) Pes planus of left foot (5) Posterior tibial tendon dysfunction, left Family History DVT Social History Smoking Status: Never Smoker Current/Historical Medications Scheduled Acetaminophen (Sb Non-Aspirin Extra Stre), 2 TABS PO Q8H Aspirin (Aspirin EC Low Dose), 81 MG PO DAILY Cetirizine (Zyrtec), 10 MG PO QAM Fish Oil (Sherman-3), 1 CAP PO QAM Levonorgestrel (Iud) (Mirena), 1 TOP IUD Multivitamin (Multivitamin), 1 TAB PO HS Omeprazole (Prilosec), 20 MG PO QAM Rivaroxaban (Xarelto), 15 MG PO BID [Fiber Tab], 1 TAB PO QAM Scheduled PRN Ranitidine (Zantac), 150 MG PO QPM PRN for RN Tramadol (Ultram), 50 MG PO Q8H PRN for Pain Allergies Coded Allergies: Amoxicillin (Verified Allergy, Unknown, RASH RADHA UPSET, 03/28/17) Clavulanic Acid (Verified Allergy, Unknown, RASH GI UPSET, 03/28/17) Physical Exam Vital Signs Date Time Temp Pulse Resp B/P (MAP) Pulse Ox O2 Delivery O2 Flow Rate FiO2 03/28/17 15:42 37.6 92 16 135/84 99 Room Air 03/28/17 14:15 36.5 98 17 138/93 100 Room Air Physical Exam GENERAL: Sitting up in bed, alert, well appearing, well nourished, no distress, non-toxic EYE EXAM: normal conjunctiva. OROPHARYNX: no exudate, no erythema, lips, buccal mucosa, and tongue normal and mucous membranes are moist NECK: supple, no nuchal rigidity, no adenopathy, non-tender LUNGS: Clear to auscultation. Normal chest wall mechanics HEART: no murmurs, S1 normal and S2 normal ABDOMEN: abdomen soft, non-tender, normo-active bowel sounds, no masses, no rebound or guarding. BACK: Back is symmetrical on inspection and there is no deformity, no midline tenderness, no CVA tenderness. SKIN: no rashes and no bruising UPPER EXTREMITIES: upper extremities are grossly normal. LOWER EXTREMITIES: Left calf in splint. Left calf larger than right. NEURO EXAM: Normal sensorium, cranial nerves II-XII grossly intact, normal speech, no gross weakness of arms, no gross weakness of legs. Medical Decision & Procedures Laboratory Results 03/28/17 14:30 Red Blood Count 4.34, Mean Corpuscular Volume 87.1, Mean Corpuscular Hemoglobin 29.3, Mean Corpuscular Hemoglobin Concent 33.6, Mean Platelet Volume 10.6, Neutrophils (%) (Auto) 75.9, Lymphocytes (%) (Auto) 16.8, Monocytes (%) (Auto) 6.0, Eosinophils (%) (Auto) 0.7, Basophils (%) (Auto) 0.3, Neutrophils # (Auto) 8.75, Lymphocytes # (Auto) 1.94, Monocytes # (Auto) 0.69, Eosinophils # (Auto) 0.08, Basophils # (Auto) 0.03 03/28/17 14:30 Test 03/28/17 14:30 White Blood Count 11.52 K/uL (4.8-10.8) Red Blood Count 4.34 M/uL (4.2-5.4) Hemoglobin 12.7 g/dL (12.0-16.0) Hematocrit 37.8 % (37-47) Mean Corpuscular Volume 87.1 fL (80-100) Mean Corpuscular Hemoglobin 29.3 pg (25-34) Mean Corpuscular Hemoglobin Concent 33.6 g/dl (32-36) Platelet Count 319 K/uL (130-400) Mean Platelet Volume 10.6 fL (7.4-10.4) Neutrophils (%) (Auto) 75.9 % Lymphocytes (%) (Auto) 16.8 % Monocytes (%) (Auto) 6.0 % Eosinophils (%) (Auto) 0.7 % Basophils (%) (Auto) 0.3 % Neutrophils # (Auto) 8.75 K/uL (1.4-6.5) Lymphocytes # (Auto) 1.94 K/uL (1.2-3.4) Monocytes # (Auto) 0.69 K/uL (0.11-0.59) Eosinophils # (Auto) 0.08 K/uL (0-0.5) Basophils # (Auto) 0.03 K/uL (0-0.2) RDW Standard Deviation 43.0 fL (36.4-46.3) RDW Coefficient of Variation 13.5 % (11.5-14.5) Immature Granulocyte % (Auto) 0.3 % Immature Granulocyte # (Auto) 0.03 K/uL (0.00-0.02) Prothrombin Time 10.7 SECONDS (9.0-12.0) Prothromb Time International Ratio 1.0 (0.9-1.1) Activated Partial Thromboplast Time 29.6 SECONDS (21.0-31.0) Partial Thromboplastin Ratio 1.1 Anion Gap 8.0 mmol/L (3-11) Est Creatinine Clear Calc Drug Dose 113.9 ml/min Estimated GFR () 119.7 Estimated GFR (Non- 103.3 BUN/Creatinine Ratio 13.7 (10-20) Calcium Level 9.3 mg/dl (8.5-10.1) Laboratory results per my review. Medications Administered Medications (Trade) Dose Ordered Sig/Clive Route Start Time Stop Time Status Last Admin Dose Admin Rivaroxaban (Xarelto Tab) 15 mg NOW ONCE PO 03/28/17 15:30 03/28/17 15:31 DC 03/28/17 15:44 15 MG ED Course ED COURSE: Vital signs were reviewed and showed hypertension The patients medical record was reviewed The above diagnostic studies were performed and reviewed. ED treatments and interventions as stated above. 1420: The patient was evaluated in room B3B. A complete history and physical examination was performed. 1520: Upon reevaluation, the patient is resting comfortably. I discussed my findings with the patient and she understands and agrees with the treatment plan. Based on the patients age, coexisting illnesses, exam and lab findings the decision to treat as an outpatient was made. The patient remained stable while under my care. The patient appeared well at the time of discharge. 1530: Ordered Xarelto Tab 15 mg PO. Medical Decision Differential diagnosis: Etiologies such as DVT, musculoskeletal, infection, joint effusion, trauma, lymphedema, idiopathic, CHF, as well as others were entertained. Patient is a 36-year-old female who is in a splint in her left lower extremity. Duplex performed as an outpatient. This showed a DVT. She was referred into the ER. Patient has no other complaints at this time. No chest pain or shortness of breath. No symptoms with exertion. CBC and BMP was unremarkable. INR was normal. Hemoglobin was normal. Patient denies coughing up any blood vomiting blood urinating blood or any blood in stool. No previous brain bleeds , recent trauma, recent surgery. After prolonged conversation in regards to Coumadin versus Xa inhibitors. She preferred to go on a new Xa inhibitor after the risk and benefits were explained. She is very familiar with anticoagulation as multiple members of her family have been on Coumadin. I gave her a 10 day prescription of Xarelto. Stressed importance of following up with her PCP within 7 days. She will need to continue this medication for likely at least 3 months. This is explained at length. She understood. Chest importance of any kind of trauma especially to the head she is be evaluated as she is at a high risk of bleeding. She understood. Xlareto was discussed with the patient by my pharmacist as well. She was updated and discharged follow-up with PCP as an outpatient. Discussed with Pt concerning signs and symptoms to watch out for. Pt was instructed to follow up with their PCP and discussed with the patient their option to return to the ED at anytime for persistent or worsening symptoms. The appropriate anticipatory guidance and out-patient management, including indications for return to the emergency department, were explained at length to the patient and understood. Medication Reconcilliation Current Medication List: was personally reviewed by me Blood Pressure Screening Patient's blood pressure: Elevated blood pressure Blood pressure disposition: Elevated BP felt to be situational Impression Primary Impression: DVT (deep venous thrombosis) Scribe Attestation The scribe's documentation has been prepared under my direction and personally reviewed by me in its entirety. I confirm that the note above accurately reflects all work, treatment, procedures, and medical decision making performed by me. Departure Information Dispostion Home / Self-Care Prescriptions Rivaroxaban (XARELTO) 15 Mg Tab 15 MG PO BID for 10 Days, #20 TAB Prov: Brenden Meyers, DO 03/28/17 Ref[facility] Forms HOME CARE DOCUMENTATION FORM, IMPORTANT VISIT INFORMATION Patient Instructions DVT, DVT Complications, My [facility], Rivaroxaban oral tablets Additional Instructions Please follow up with your primary care doctor with in the next 24 hours. Any worsening of your symptoms, please return to the ED immediately. This includes any fevers greater than 100.4, worsening pain, chest pain, shortness breath, passing out, persistent nausea, vomiting, unable to eat or drink, or any other concerning signs or symptoms from your standpoint. You were given a blood thinner during this visit. You will need to take it twice a day. You were given a prescription for 1 week. This is to ensure that you get into see your primary care doctor for a refill this prescription. You need to continue this medication for 3 months or greater depending on your PCPs evaluation. Please remember that any trauma especially to the head you need to be evaluated immediately. This medication does put U at a higher propensity of bleeding. Problem Qualifiers Primary Impression: DVT (deep venous thrombosis) DVT location: lower extremity Affected thrombotic vein of extremity: unspecified vein of extremity Chronicity: acute Laterality: left Qualified Codes: I82.402 - Acute embolism and thrombosis of unspecified deep veins of left lower extremity
== END 2017-03-28 15:45 | disposition home or self-care (01) ==
LOC: C.EDB 14:10
DX: I82.402 Acute embolism and thrombosis of unspecified deep veins of left lower extremity (principal); R03.0 Elevated blood-pressure reading, without diagnosis of hypertension; Z98.890 Other specified postprocedural states; Z79.82 Long term (current) use of aspirin; Z97.5 Presence of (intrauterine) contraceptive device; Z83.2 Family history of diseases of the blood and blood-forming organs and certain disorders involving the immune mechanism

== ENCOUNTER → 2017-03-28 | Outpatient (CLI) | payer BC ==
[~2017-03-28] MED LIST changes: -ACET-1311 PO; +ACET-24 PO; +ASPEC81 PO; -ATROPINE SULFATE 0.1 MG/ML 5ML SYR IV PRN; -BUPIVACAINE 0.5 % 5 MG/1 ML PF 10ML VIAL ONE; -CLINDAMYCIN 600 MG/54 ML D5W IV SCH; -EpHEDrine SULFATE INJ 50 MG/ML AMP IV PRN; -IBUP-1050 PO; -LABETALOL HCL IV 5 MG/ML 20ML IV PRN; -LACTATED RINGER'S 1000ML 1,000 ML IV SCH; -MEPERIDINE HCL 25 MG/ML CARP IV PRN; -ONDANSETRON INJ 2 MG/ML 2 ML VIAL IV PRN; +OXYSR10 PO; +PROM25TA9 PO; +RIVA1.5T PO; +RXC5 PO; +TRAM-10 PO
--- NOTE | 2017-03-28 13:36 | DIAGNOSTIC IMAGING REPORT ---
LEFT LOWER EXTREMITY VENOUS DOPPLER HISTORY: LEFT CALF PAIN, R/O DVT COMPARISON STUDY: None. FINDINGS: The left common femoral, superficial femoral, popliteal, anterior tibial veins are patent. There is thrombus identified within one of 2 posterior tibial veins and the peroneal veins. IMPRESSION: The study is positive for deep venous thrombosis within the left calf as described above. Electronically signed by: Raheem Mijares M.D. 03/28/2017 1:35 PM Dictated Date/Time: 03/28/2017 1:34 PM
== END | disposition home or self-care (01) ==
LOC: C.ULTRBC 12:48
PROVIDERS: ATTEND Physician Assistant
DX: I82.4Z2 Acute embolism and thrombosis of unspecified deep veins of left distal lower extremity (principal)

== ENCOUNTER → 2017-06-26 | Outpatient (CLI) | payer BC ==
[~2017-06-26] MED LIST changes: -ASPEC81 PO; +ASPI-320 PO; -LEVO25CA2 PO; -OXYSR10 PO; -PROM25TA9 PO; +RANI150T85 PO; +RIVA1.5T PO; -RXC5 PO; +TRAM-10 PO; -ZNTT/150 PO
[2017-06-26 13:08] LABS: BASO % 0.3 %; BASO ABS # 0.02 K/uL (0-0.2); EOS % 1.3 %; HEMATOCRIT 36.5 % (37-47); HEMOGLOBIN 12.1 g/dL (12.0-16.0); IG# 0.01 K/uL (0.00-0.02); LYMPH % 31.2 %; MEAN CELL VOLUME 87.3 fL (80-100); MEAN CORPUSCULAR HEMOGLOBIN 28.9 pg (25-34); MEAN CORPUSCULAR HGB CONC 33.2 g/dl (32-36); MEAN PLATELET VOLUME 11.2 fL (7.4-10.4); MONO % 6.1 %; MONO ABS # 0.47 K/uL (0.11-0.59); NEUT ABS # 4.69 K/uL (1.4-6.5); PLATELET COUNT 338 K/uL (130-400); RED CELL DISTRIBUTION WIDTH SD 44.6 fL (36.4-46.3); WHITE BLOOD COUNT 7.69 K/uL (4.8-10.8)
[2017-06-26 14:07] LABS: ALBUMIN 3.8 gm/dl (3.4-5.0); ALKALINE PHOSPHATASE 96 U/L (45-117); ALT/SGPT 26 U/L (12-78); AST/SGOT 18 U/L (15-37); BLOOD UREA NITROGEN 16 mg/dl (7-18); CALCIUM 8.9 mg/dl (8.5-10.1); CARBON DIOXIDE 25 mmol/L (21-32); CHOLESTEROL 191 mg/dl (0-200); CREATININE 0.73 mg/dl (0.60-1.20); GLUCOSE 103 mg/dl (70-99); LDL CHOLESTEROL CALCULATED 114 mg/dl; POTASSIUM 3.9 mmol/L (3.5-5.1); SODIUM 137 mmol/L (136-145); TOTAL PROTEIN 7.9 gm/dl (6.4-8.2)
== END | disposition home or self-care (01) ==
LOC: C.LABSPEC 12:27
PROVIDERS: ATTEND Family Medicine
DX: E03.9 Hypothyroidism, unspecified (principal); E78.2 Mixed hyperlipidemia; K21.9 Gastro-esophageal reflux disease without esophagitis

== ENCOUNTER → 2017-07-24 | Outpatient (CLI) | payer BC | END | disposition home or self-care (01) | LOC: C.LABSPEC 12:36 | PROVIDERS: ATTEND Family Medicine | DX: R30.0 Dysuria (principal) ==

== ENCOUNTER 2018-05-15 06:15 | Observation (INO) ==
--- NOTE | 2018-04-18 13:17 | Anesthesiology Consultation ---
Date of Service April 18, 2018 Assessment & Plan (1) Encounter for pre-operative examination: Chart Review Chart Review: Acceptable Risk for Surgery and Patient seen in Pre Admission Testing Consults Requested none Teaching & Discussion Pre-Anesthesia Teaching/Discussion Notes: Instructed NPO after midnight before surgery, except medications with 15 cc of water. Medication instructions provided according to the PAT guidelines. History Surgery Operation Date: 05/15/18 07:45 Proposed Procedures p C6-C7 Anterior Cervical Discectomy and Fusion - Guru Chris DO Height/Weight Height: 5 ft 2 in Weight: 90.5 kg Allergies Allergy/AdvReac Type Severity Reaction Status Date / Time amoxicillin Allergy Unknown RASH, GI Verified 04/11/18 11:22 UPSET clavulanic acid Allergy Unknown RASH GI Verified 04/11/18 11:22 UPSET Medications Home Medications Medication Instructions Recorded Confirmed Last Taken multivitamin [Multiple Vitamins] 1 tab PO HS 04/11/18 04/11/18 Unknown Krill Oil 350 mg PO DAILY 04/18/18 04/18/18 Unknown acetaminophen [Tylenol Extra 1,500 mg PO UD PRN 04/18/18 04/18/18 Unknown Strength] aspirin 162.5 mg PO DAILY 04/18/18 04/18/18 Unknown cetirizine 20 mg PO QAM 04/18/18 04/18/18 Unknown ibuprofen 800 mg PO BID 04/18/18 04/18/18 Unknown melatonin 10 mg PO HS PRN 04/18/18 04/18/18 Unknown omeprazole 20 mg PO QAM 04/18/18 04/18/18 Unknown Past Medical History Medical History Acid reflux Diverticulosis Environmental allergies Flat foot TENDON ISSUE RIGHT FOOT (NEEDS SURGERY IN FUTURE) Frequent UTI HX OF FREQUENT UTI'S/NONE IN LAST YR Hiatal hernia History of DVT (deep vein thrombosis) LEFT LEG , S/P LEFT FOOT SURGERY/MAR 2017 Pinched nerve in neck Past Family History Family History Grandmother Family history of pancreatic cancer Other Family history of skin cancer Past Surgical History Surgical History History of anesthesia reaction WITH GALBLADDER SURGERY WHILE IN RECOVERY ROOM, EVERY TIME WOULD BE SAT UP BLOOD PRESSURE WOULD DROP ([place]) History of colonoscopy History of endoscopy History of foot surgery RECONSTRUCTIVE LEFT - LMA #4 History of laparoscopic cholecystectomy History of wisdom tooth extraction Past Anesthesia History No Hx of Anesthesia Complications and No Family Hx of Anesthesia Complications Mother has PONV History of PONV No Motion Sickness Screening History of Motion Sickness: No STOP BANG Total 2 Social History Smoking Status: Never smoker Do You Dip or Chew Tobacco: No Hx Alcohol Use: No Hx Substance Use: No substance use type: does not use Exercise / Class Metabolic Activity II 4-5 Yardwork/Stairs/Walk up hill (Able to climb FOS. Denies CP or SOB. ) Review of Systems Patient denies chest pain, shortness of breath, dyspnea on exertion, cough, wheezing, palpitations. +joint pain (neck, right ankle/foot, right elbow) +acid reflux (controlled by medication) Physical Exam Vital Signs BP: 119/76 P: 87 R: 16 T: 98.3 SPO2: 100% on RA ENMT Thyromental Distance: > or= 3.5 Finger Breadths (3.5) Mallampati Class: I Neck normal visual inspection and trachea midline; neck extension not limited Respiratory normal respiratory effort Auscultation: lungs clear to auscultation bilaterally Cardiovascular Rate/Rhythm: regular rate and regular rhythm Heart Sounds: no murmur Vessels: no carotid bruit Neurologic moves all extremities Psychiatric Orientation: alert and oriented x 3 Testing Electrocardiogram Date: 04/18/18 Findings: + NSR @ (89) and + no change from (02/07/17) Chest X-Ray Date: 04/18/18 Findings: + NAD Laboratory Results 04/18/18 13:34 04/18/18 13:34 Blood Type O Positive 04/18/18 13:34 Antibody Screen NEGATIVE 04/18/18 13:34 PT 10.4 Seconds (9.0-12.0) 04/18/18 13:34 INR 1.0 (0.9-1.1) 04/18/18 13:34 APTT 28.9 Seconds (21.0-31.0) 04/18/18 13:34 Urine Color Yellow 04/18/18 13:34 Urine Appearance Cloudy (Clear) H 04/18/18 13:34 Urine pH 5.0 (4.5-7.5) 04/18/18 13:34 Ur Specific Benedict 1.012 (1.000-1.030) 04/18/18 13:34 Urine Protein Negative (Negative) 04/18/18 13:34 Urine Glucose (UA) Negative (Negative) 04/18/18 13:34 Urine Ketones Negative (Negative) 04/18/18 13:34 Urine Nitrite Negative (Negative) 04/18/18 13:34 Ur Leukocyte Esterase 1+ (Negative) H 04/18/18 13:34 Urine WBC (Auto) 5-10 /hpf (0-5) H 04/18/18 13:34 Urine RBC (Auto) 0-4 /hpf (0-4) 04/18/18 13:34 U Hyaline Cast (Auto) 1-5 /lpf (0-5) 04/18/18 13:34 U Epithel Cells (Auto) >30 /lpf (0-5) H 04/18/18 13:34 Urine Bacteria (Auto) Negative (Negative) 04/18/18 13:34
--- NOTE | 2018-04-18 13:26 | PAT Medication Instructions ---
Medication Instructions Date of Service April 18, 2018 Home Medications multivitamin [Multiple Vitamins] 1 tab PO HS Krill Oil 350 mg PO DAILY acetaminophen [Tylenol Extra] 1,500 mg PO UD PRN aspirin 162.5 mg PO DAILY cetirizine 20 mg PO QAM ibuprofen 800 mg PO BID melatonin 10 mg PO HS PRN omeprazole 20 mg PO QAM ASK your surgeon for instructions ibuprofen 800 mg PO BID ASK your prescriber and surgeon aspirin 162.5 mg PO DAILY STOP taking 2 weeks before surgery Krill Oil 350 mg PO DAILY DO NOT take the morning of surgery cetirizine 20 mg PO QAM Take morning of surgery With a small sip of water, OTHERWISE NOTHING TO EAT OR DRINK AFTER MIDNIGHT: acetaminophen [Tylenol Extra] 1,500 mg PO UD PRN omeprazole 20 mg PO QAM Take evening before surgery multivitamin [Multiple Vitamins] 1 tab PO HS acetaminophen [Tylenol Extra] 1,500 mg PO UD PRN melatonin 10 mg PO HS PRN Other Notes If you have any questions please call us at [phone] or [phone] or [phone] or [phone]
--- NOTE | 2018-04-18 14:13 | XRay Report ---
XR chest Pre-admission PA/Lat HISTORY: 37 years-old Female pat preoperative exam. No acute chest complaints COMPARISON: Chest radiographs 02/07/2017 TECHNIQUE: PA and lateral views of the chest FINDINGS: Cardiomediastinal and hilar silhouettes are within normal limits. No pneumothorax, pleural effusion, focal airspace consolidation or overt pulmonary edema. The bones of the chest appear grossly intact. Prior cholecystectomy. IMPRESSION: No acute process. The above report was generated using voice recognition software. It may contain grammatical, syntax o r spelling errors. Electronically signed by: Chino Zendejas M.D. 04/18/2018 2:12 PM
[2018-04-18 14:19] LABS: Basophils # (auto) 0.04 K/uL (0-0.2); Basophils % (auto) 0.5 %; Eosinophils # (auto) 0.13 K/uL (0-0.5); Eosinophils % (auto) 1.5 %; Hematocrit (blood only) 37.5 % (37-47); Hemoglobin 12.9 g/dL (12.0-16.0); Immature Granulocytes # (auto) 0.01 K/uL (0.00-0.02); Immature Granulocytes % (auto) 0.1 %; Lymphocytes # (auto) 3.14 K/uL (1.2-3.4); Lymphocytes % (auto) 35.6 %; Mean Corpuscular Hgb Conc 34.4 g/dL (32-36); Mean Corpuscular Volume 89.9 fL (80-100); Mean Platelet Volume 10.6 fL (7.4-10.4); Monocytes # (auto) 0.56 K/uL (0.11-0.59); Monocytes % (auto) 6.3 %; Neutrophils # (auto) 4.95 K/uL (1.4-6.5); Platelet Count 348 K/uL (130-400); RDW Coefficient of Variation 13.2 % (11.5-14.5); RDW Standard Deviation 43.6 fL (36.4-46.3); Red Blood Count 4.17 M/uL (4.2-5.4); White Blood Count 8.83 K/uL (4.8-10.8)
[2018-04-18 14:26] LABS: BUN Creatinine Ratio 16.2 (10-20); Calcium 8.7 mg/dl (8.5-10.1); Creatinine Clr Calc Pharmacy 90.4 ml/min; Est GFR (African American) 95.3; Est GFR (Non-African American) 82.3; Potassium 3.9 mmol/L (3.5-5.1)
[2018-04-18 14:35] LABS: Appearance Urine Cloudy (Clear); Bacteria Urine Automated Negative (Negative); Bilirubin Urine Negative (Negative); Blood Urine 1+ (Negative); Color Urine Yellow; Epithelial Cell Urine Auto >30 /lpf (0-5); Glucose Urine UA Negative (Negative); Ketones Urine Negative (Negative); Leukocyte Esterase Urine 1+ (Negative); Nitrite Urine Negative (Negative); Protein Urine Negative (Negative); RBC Urine Automated 0-4 /hpf (0-4); Specific Gravity Urine 1.012 (1.000-1.030); Urobilinogen Urine Negative (Negative)
[2018-04-18 14:37] LABS: Partial Thromboplastin Ratio 1.1; Partial Thromboplastin Time 28.9 Seconds (21.0-31.0); Prothrombin Time 10.4 Seconds (9.0-12.0)
[~2018-05-15 06:15] MED LIST changes: -ACET-24 PO; +ACETAMINOPHEN 500 MG TAB PO SCH; -ASPI-320 PO; +CEFAZOLIN 2000MG 2,000 MG/15 ML SYR IV SCH; -CETI10TA84 PO; +CeleBREX 200 MG CAP PO SCH; -FIBER TAB PO; +GABAPENTIN 300 MG x 3 PO SCH; -LEVO1IUD2 TOP; +LR 15ML/HR IV SCH; -MULT-506 PO; -OMEG10007 PO; -PRLSR20 PO; -RANI150T85 PO; -RIVA1.5T PO; -TRAM-10 PO
[2018-05-15] MEDS ORDERED: fentaNYL citrate 100 MCG/2 ML VIAL ONE ×4 (06:40→08:45)
[2018-05-15] MEDS ORDERED: MIDAZOLAM HCL 1 MG/ML 2ML VIAL ONE (06:40)
[2018-05-15] MEDS ORDERED: HYDROmorphone INJ 2 MG/ML SYR/VIAL ONE ×2 (06:40→06:41)
[2018-05-15] MEDS ORDERED: LIDOCAINE HCL 2% 2 ML VIAL/AMP(20MG/ML) INFIL ONE (06:46)
[2018-05-15] MEDS ORDERED: ONDANSETRON INJ 2 MG/ML 2 ML VIAL ONE ×2 (06:46→08:42)
[2018-05-15] MEDS ORDERED: GLYCOPYRROLATE 0.2 MG/ML VIAL ONE (06:46)
[2018-05-15] MEDS ORDERED: PROPOFOL IV EMULSION 10 MG/ML 20 ML VIAL IV ONE (06:46)
[2018-05-15] MEDS ORDERED: NEOSTIGMINE METHYLSULFATE 1 MG/ML 10ML VIAL ONE (06:46)
[2018-05-15] MEDS ORDERED: ROCURONIUM BROMIDE 10 MG/ML 5 ML VIAL ONE (06:46)
[2018-05-15] MEDS ORDERED: DEXAMETHASONE SOD INJ 4 MG/ML VIAL ONE (06:46)
[2018-05-15] MEDS ORDERED: BACITRACIN INJ 50,000 UNIT VIAL ONE (06:47)
[2018-05-15] MEDS ORDERED: HYDROmorphone INJ 1 MG/ML SYRINGE IV PRN (06:53)
[2018-05-15] MEDS ORDERED: ONDANSETRON INJ 2 MG/ML 2 ML VIAL IV PRN ×2 (06:53→10:29)
[2018-05-15] MEDS ORDERED: KETOROLAC 30 MG/ML VIAL IV PRN (06:53)
[2018-05-15] MEDS ORDERED: DEXAMETHASONE SOD INJ 4 MG/ML VIAL IV PRN (06:53)
[2018-05-15] MEDS ORDERED: ePHEDrine sulfate 50 MG/ML AMP IV PRN (06:53)
[2018-05-15] MEDS ORDERED: ATROPINE SULFATE 0.1 MG/ML 10ML SYR IV PRN (06:53)
[2018-05-15] MEDS ORDERED: SODIUM CHLORIDE 0.9% INJ 10 ML VIAL ONE (07:19)
--- NOTE | 2018-05-15 07:26 | History & Physical Bridge Note ---
Date of Service May 15, 2018 History & Physical Bridge Note I have examined the patient, reviewed the History & Physical and in the interval since the performance of the History & Physical I have noted the following changes of clinical significance: no changes noted
[2018-05-15] MEDS ORDERED: FLOSEAL HEMOSTATIC MATRIX 10ML TOP ONE (07:27)
--- NOTE | 2018-05-15 07:27 | History & Physical Report ---
Date of Service May 15, 2018 Assessment & Plan (1) Cervical stenosis of spinal canal: Anterior cervical discectomy and fusion C6-7 Present on Admission?: Yes History of Present Illness Chief Complaint: Neck and arm pain Primary Care Provider: Tyson Centeno Since with neck and arm pain. After failing extensive course of nonoperative care she is here for surgical intervention. Allergies Allergy/AdvReac Type Severity Reaction Status Date / Time amoxicillin AdvReac Unknown RASH, GI Verified 05/15/18 06:51 UPSET clavulanic acid AdvReac Unknown RASH GI Verified 05/15/18 06:51 UPSET Home Medications Home Medications Medication Instructions Recorded Confirmed Type multivitamin [Multiple Vitamins] 1 tab PO HS 04/11/18 05/15/18 History Krill Oil 350 mg PO DAILY 04/18/18 05/15/18 History acetaminophen [Tylenol Extra 1,500 mg PO UD PRN 04/18/18 05/15/18 History Strength] aspirin 162.5 mg PO DAILY 04/18/18 05/15/18 History cetirizine 20 mg PO QAM 04/18/18 05/15/18 History ibuprofen 800 mg PO BID 04/18/18 05/15/18 History melatonin 10 mg PO HS PRN 04/18/18 05/15/18 History omeprazole 20 mg PO QAM 04/18/18 05/15/18 History Past Med/Surg History Family History Grandmother Family history of pancreatic cancer Other Family history of skin cancer Social History Preferred Language: Vincentian Communication Ability: Effective Director Industrial Nursing Required: No Beliefs That Will Affect Care: None Current Living Situation: Spouse Other Information That Helps Us Care for You: No Feels Safe at Home: Yes Smoking Status: Never smoker Hx Alcohol Use: No Hx Substance Use: No Physical Exam Vital Signs (Past 24 Hours): Last Vital Signs Temp 37.2 C 05/15/18 07:02 Pulse 90 05/15/18 07:02 Resp 18 05/15/18 07:02 BP 108/78 05/15/18 07:02 Pulse Ox 99 05/15/18 07:02 Results & Data Medications Administered Acetaminophen (Tylenol) 1,000 mg PO PREOP SUMA Stop: 05/15/18 18:00 Last Admin: 05/15/18 06:56 Dose: 1,000 mg Documented by: [id number] Celecoxib (Celebrex) 200 mg PO PREOP SUMA Stop: 05/15/18 18:00 Last Admin: 05/15/18 06:56 Dose: 200 mg Documented by: [id number] Gabapentin (Neurontin) 900 mg PO PREOP SUMA Stop: 05/15/18 18:00 Last Admin: 05/15/18 06:56 Dose: 900 mg Documented by: [id number] Lactated Ringer's (Lr) 1,000 mls @ 15 mls/hr IV .Q24H SUMA Stop: 05/16/18 05:59 Last Admin: 05/15/18 06:57 Dose: 15 mls/hr Documented by: [id number]
[2018-05-15] MEDS ORDERED: LARYING-O-JET KIT (LTA) ONE (08:42)
[2018-05-15] MEDS ORDERED: raNITIdine HCl 25 MG/ML VIAL ONE (08:42)
[2018-05-15] MEDS ORDERED: METOCLOPRAMIDE HCL INJ 5 MG/ML 2 ML VIAL ONE (08:42)
--- NOTE | 2018-05-15 09:01 | Operative Report ---
Post Operative Report Pre & Post Diagnosis Operation Date: 05/15/18 07:45 Pre-Op Diagnosis: Cervical spinal stenosis with radiculopathy Post-Op Diagnosis: Same Procedure Operation Date: 05/15/18 07:45 Actual Procedures #1 anterior cervical discectomy bilateral foraminotomies C6-7. #2 anterior cervical arthrodesis C6-7. #3 placement of cortical allograft 7 mm in height filled with DBM at C6-7. #4 application archer plate and screws across C6-7. Surgeon Guru Chris, Ribbon Sweatband Operator None Estimated Blood Loss 10 Findings Consistent with Post-Op Diagnosis Specimens None Description of Procedure Patient was met with preoperatively case discussed all questions addressed. After informed consent obtained patient was taken to the operative suite underwent intubation and placed in a supine position Rod table and Painter headholder. All bony prominences well-padded eyes inspected to ensure no external pressure placed upon the peer at this point the anterior cervical spine was prepped and draped in a normal sterile fashion. The assistance of fluoroscopy identified the C6-7 disc space and a transverse incision was placed along the right anterior aspect of the cervical spine overlying this region. Sharp dissection with the assistance of bipolar electrocautery was performed down to and exposing the anterior cervical spine at C6-7. I verified my position with fluoroscopy. Self-retaining retractors were placed. Then performed a complete discectomy of C6-7 out to the uncovertebral joints bilaterally. [place] distracting pins utilized to assist in visualization. Removed all posterior annular fibers longitudinal ligament and performed bilateral foraminotomies addressing all disc herniation. Endplates burred to subcortical bleeding bone and a 7 mm cortical allograft filled with DBM tamped in position. Distraction apparatus was removed. A archer plate and screws applied with the assistance of fluoroscopy. The incision was then copiously irrigated explored to ensure no damage to surrounding structures or remaining bleeding. 10 round GAVI drain inserted. Incision was then closed with 2 Vicryl in the fascia and 4-0 Monocryl for final skin closure. Steri-Strip sterile dressings placed. Patient will continue to PACU stable condition. I attest to the content of the Intraoperative Record and any orders documented therein. Any exceptions are noted below.
[2018-05-15] MEDS: fentaNYL citrate 100 MCG/2 ML VIAL IV PRN ×4 (09:19→09:55)
--- NOTE | 2018-05-15 09:29 | Fluoroscopy Report ---
FL cervical 2-3V HISTORY: 37 years-old Female ACDF C6-7 status post fusion of the lower cervical spine. COMPARISON: None available TECHNIQUE: 2 spot fluoroscopic images of the cervical spine were obtained utilizing 12.2 seconds fluo roscopy time FINDINGS: Lower cervical segments are not well-seen secondary to positioning. Anterior plate and screw fusion a t what appears to be the C5-C6 level. Alignment appears satisfactory on these images. Surgical draina ge catheter is in place. IMPRESSION: Fluoroscopic assistance as above. Please see operative report for further details. The above report was generated using voice recognition software. It may contain grammatical, syntax o r spelling errors. Electronically signed by: Chino Zendejas M.D. 05/15/2018 9:28 AM
[2018-05-15] MEDS ORDERED: ESMOLOL HCL INJ 10 MG/ML 10ML VIAL IV ONE (09:52)
--- NOTE | 2018-05-15 10:23 | Anesthesiology Progress Note ---
Date of Service May 15, 2018 Anesthesia Post Procedure Vital Signs Vital Signs: Temp Pulse Pulse Resp BP BP Pulse Ox 05/15/18 10:05 36.7 C 72 16 116/71 99 05/15/18 09:55 69 12 123/81 97 05/15/18 09:45 76 16 114/78 99 05/15/18 09:35 66 19 115/75 97 05/15/18 09:25 66 17 112/77 100 05/15/18 09:15 74 18 126/75 100 05/15/18 09:05 36.6 C 75 14 115/72 100 05/15/18 07:02 37.2 C 90 18 108/78 99 Pain Intensity Right Neck: Pain Intensity: 6 Medial Neck: Pain Intensity: 4 Bilateral Posterior Shoulder: Pain Intensity: 4 Notes Mental Status: alert / awake / arousable and participated in evaluation Patient Amnestic to Procedure: Yes Nausea / Vomiting: adequately controlled Pain: adequately controlled Airway Patency, RR, SpO2: stable & adequate BP & HR: stable & adequate Hydration State: stable & adequate Anesthetic Complications: no major complications apparent
[2018-05-15] MEDS ORDERED: NALOXONE HCL 0.4 MG/1 ML VIAL/CARP IV PRN (10:29)
[2018-05-15] MEDS ORDERED: MAGNESIUM HYDROXIDE SUSP 30 ML UDC PO PRN (10:29)
[2018-05-15] MEDS ORDERED: HYDROmorphone INJ 0.5 MG/0.5 ML SYR IV PRN (10:29)
[2018-05-15] MEDS ORDERED: DiphenhydrAMINE HCL 50 MG/ML VIAL IV PRN (10:29)
[2018-05-15] MEDS ORDERED: LACTATED RINGER'S 1,000 ML IV SCH (10:29)
[2018-05-15] MEDS ORDERED: LORazepam 0.5 MG/1 ML VIAL IV PRN (10:29)
[2018-05-15] MEDS ORDERED: ACETAMINOPHEN 500 MG TAB PO PRN (10:29)
[2018-05-15] MEDS ORDERED: DEXAMETHASONE SOD PHOSPHATE 8 MG in SYRINGE 0 ML IV PRN (10:29)
[2018-05-15] MEDS ORDERED: DO NOT ADMINISTER PNEUMOCOCCAL VACCINE PRN (10:29)
[2018-05-15] MEDS ORDERED: DO NOT ADMINISTER FLU VACCINE PRN (10:29)
[2018-05-15] MEDS ORDERED: RACEPINEPHRINE 2.25% NEBU SOLN 0.5 ML VIAL INH PRN (10:29)
[2018-05-15] MEDS ORDERED: LORazepam 0.5 MG TAB PO PRN (10:29)
[2018-05-15] MEDS ORDERED: SCOPOLAMINE 1.5 MG TDSY TD SCH (11:00)
[2018-05-15] MEDS: CLINDAMYCIN 600 MG in DEXTROSE 5% 50 ML IV SCH ×2 (14:34→22:20)
[2018-05-15] MEDS: CHECK SCOPOLAMINE PATCH PLACEMENT SCH ×2 (15:36→23:51)
[2018-05-15] MEDS: ACETAMINOPHEN 1,000 MG/100 ML VIAL IV PRN (16:37)
[2018-05-15] MEDS: OXYCODONE HCL IR 5 MG TAB (IMMEDIATE RELEASE) PO PRN (20:28)
[2018-05-15] MEDS: DOCUSATE SODIUM 100 MG CAP PO SCH (20:29)
[2018-05-15] MEDS ORDERED: MULTIVITAMIN TAB PO SCH (21:00)
[2018-05-16] MEDS: ACETAMINOPHEN 1,000 MG/100 ML VIAL IV PRN (01:54)
[2018-05-16] MEDS: OXYCODONE HCL IR 5 MG TAB (IMMEDIATE RELEASE) PO PRN (05:39)
[2018-05-16] MEDS: CLINDAMYCIN 600 MG in DEXTROSE 5% 50 ML IV SCH (05:40)
--- NOTE | 2018-05-16 08:10 | Discharge Summary ---
Date of Service May 16, 2018 Admission HPI Per Admitting Provider Since with neck and arm pain. After failing extensive course of nonoperative care she is here for surgical intervention. Principal Diagnosis Cervical spinal stenosis with radiculopathy Discharge Data Allergies Allergy/AdvReac Type Severity Reaction Status Date / Time amoxicillin AdvReac Unknown RASH, GI Verified 05/15/18 06:51 UPSET clavulanic acid AdvReac Unknown RASH GI Verified 05/15/18 06:51 UPSET Procedures Performed Operation Date: 05/15/18 07:45 Actual Procedures p C6-C7 Anterior Cervical Discectomy and Fusion(Not Applicable) - Guru Chris DO Ordered Studies 05/15/18 07:45 FL cervical 2-3V Routine FL fluoroscopy <1hr Routine Hospital Course (1) Cervical stenosis of spinal canal: Patient is status post anterior cervical discectomy and fusion. Postop day 1 she had marked improvement in arm symptoms swallowing well. No hoarseness. GAVI drain decreasing appropriately. Subsequently discharged home. Discharge orders and instructions found in the chart for further review. Total Time Total Time Spent Total Time Spent (In Minutes): Not applicable Discharge Plan Discharge Items Patient Disposition: Home - Self-Care Reason For Visit: Spinal Stenosis, Cervical Region Discharge Diagnosis: Cervical stenosis with radiculopathy Discharge Goals: Decrease discomfort Activity: Per 'Additional Instructions' section Non-emergency contact: Primary Care Provider Call non-emergency contact if: you have any medication questions Follow-up/Referrals: Tyson Centeno DO [Primary Care Provider] - Diet: Regular Addtl Provider Instructions: ACTIVITY RECOMMENDATIONS: SELF CARE INSTRUCTIONS AFTER CERVICAL FUSIONS 1. No smoking. Smoking drastically decreases the chance of a solid fusion. 2. No bending, lifting more than 5 pounds, or twisting (roll like a log when turning in bed). 3. You may shower 3 days after surgery. Thoroughly dry wound. Do not soak in the tub. 4. Cervical collar: Must be worn at all times including sleeping. You may remove the brace only to bath, eat and if you are sitting in a recliner. 5. Please walk as much as you can for exercise. Gradually increase the distance that you walk as your endurance increases. SPECIAL CARE INSTRUCTIONS: VERY IMPORTANT TO READ AND REVIEW A. Do not take any anti-inflammatory medications (i.e. Indocin, Advil, Aspirin, Naprosyn, Aleve, Motrin, etc.) as these may inhibit the chance of a solid fusion. Tylenol is okay to take. B. Your surgical incision has been closed with a cosmetic suture under the skin that will dissolve in about 6 weeks. In 14 days, you can use a pair of clean scissors and cut the suture that is left outside of the skin at the ends of your incision. C. Complications are uncommon, but please contact us if you have any signs or symptoms of: 1. wound infection (fever higher than 102.5 degrees F, redness, separation of wound, drainage, or increasing pain from the incision) 2. blood clots in legs (pain, swelling, redness and warmth in legs) 3. urinary tract infection (fever higher than 102.5 degrees, burning upon urination or increased frequency of urination) 4. nerve problems (inability to walk on your toes or heels, numbness, loss of bowel or bladder control) 5. any other symptoms that concern you. D. Please call the office at if you have any concerns or questions about your operation or recovery. MANAGING PAIN AFTER SPINAL SURGERY 1. Narcotic medication is intended for short-term use and will be provided for surgical pain. Surgical pain usually lasts for a period of 4-6 weeks. Narcotic medication includes Percocet, Vicodin, Darvocet, Tylenol #3 or Lortab. 2. Longer-term pain is more appropriately treated with non-narcotic medication such as Tylenol ES. 3. Muscle spasm is not appropriately treated with narcotics. Muscle relaxers such as Soma, Flexeril or Skelaxin can be used along with Tylenol ES. 4. Remember that we all live with some "aches and pains". This is not unusual or uncommon after an injury or as we get older. 5. We will provide appropriate medication within the normal guidelines of their prescribed use. We will also be very cautious and aware of potential abuse and extended duration of patients' medication needs. 6. Please allow 2-3 days to process refills. Prescriptions will not be mailed but must be picked up at the office. FOLLOW UP VISIT: Keep your scheduled follow-up appointment. Any questions, please call the office at . Prescriptions: New oxycodone 5 mg Tablet 5 mg PO Q4H PRN (Reason: Pain, Severe) Qty: 30 RF: 0 Continued multivitamin [Multiple Vitamins] Tablet 1 tab PO HS RF: 0 cetirizine 10 mg Tablet 20 mg PO QAM RF: 0 ibuprofen 800 mg Tablet 800 mg PO BID RF: 0 acetaminophen [Tylenol Extra Strength] 500 mg Tablet 1,500 mg PO UD PRN (Reason: Pain) RF: 0 omeprazole 20 mg Capsule,Delayed Release(Dr/Ec) 20 mg PO QAM RF: 0 melatonin 10 mg Tablet 10 mg PO HS PRN (Reason: Sleep) RF: 0 aspirin 162.5 mg Capsule,Extended Release 24hr 162.5 mg PO DAILY RF: 0 Krill Oil 350 mg PO DAILY RF: 0 Stand-Alone Forms: [facility] Discharge Orders: Discharge Order (Routine); Ordered 05/16/18 Ordered By: Guru Chris Admission Data Admit Date/Time: 05/15/18 09:05 Attending Provider: Guru Chris Admit Provider: Guru Chris Primary Care Provider: Tyson Centeno Service: Surgical Services
[2018-05-16] MEDS: CHECK SCOPOLAMINE PATCH PLACEMENT SCH (08:22)
[2018-05-16] MEDS: DOCUSATE SODIUM 100 MG CAP PO SCH (08:23)
--- NOTE | 2018-05-16 08:34 | Anesthesiology Progress Note ---
Date of Service May 16, 2018 Anesthesia Post Procedure Vital Signs Vital Signs: Temp Pulse Pulse Resp BP BP Pulse Ox 05/16/18 08:14 77 18 98 05/16/18 07:03 36.8 C 76 18 104/71 94 05/16/18 05:30 37.1 C 72 16 114/79 98 05/16/18 03:31 74 16 94 05/16/18 03:30 37.1 C 75 16 101/69 96 05/16/18 01:30 36.6 C 83 16 94/66 L 97 05/15/18 23:30 36.6 C 83 16 94/66 L 97 05/15/18 22:56 88 18 94 05/15/18 21:28 36.6 C 94 H 16 133/84 95 05/15/18 19:48 65 16 96 05/15/18 19:29 36.6 C 95 H 16 122/83 97 05/15/18 17:30 36.6 C 87 16 129/73 97 05/15/18 17:27 36.7 C 80 18 100/69 97 05/15/18 15:26 36.7 C 91 H 18 109/75 05/15/18 15:08 98 H 18 98 05/15/18 13:30 93 H 12 111/76 98 05/15/18 12:26 78 12 107/68 98 05/15/18 11:30 78 14 110/71 98 05/15/18 10:58 78 14 104/69 98 05/15/18 10:55 85 18 98 05/15/18 10:30 36.7 C 80 14 107/73 98 05/15/18 10:15 36.7 C 77 14 116/69 97 05/15/18 10:05 36.7 C 72 16 116/71 99 05/15/18 09:55 69 12 123/81 97 05/15/18 09:45 76 16 114/78 99 05/15/18 09:35 66 19 115/75 97 05/15/18 09:25 66 17 112/77 100 05/15/18 09:15 74 18 126/75 100 05/15/18 09:05 36.6 C 75 14 115/72 100 Pain Intensity Right Neck: Pain Intensity: 6 Medial Neck: Pain Intensity: 2 Bilateral Posterior Shoulder: Pain Intensity: 4 Notes Mental Status: alert / awake / arousable and participated in evaluation Patient Amnestic to Procedure: Yes Nausea / Vomiting: adequately controlled Pain: adequately controlled Airway Patency, RR, SpO2: stable & adequate BP & HR: stable & adequate Hydration State: stable & adequate Anesthetic Complications: no major complications apparent and Pt Satisfied with anesthetic care
[2018-05-16] MEDS ORDERED: PANTOprazole 40 MG TAB PO SCH (09:00)
[2018-05-16] MEDS ORDERED: CETIRIZINE HCL 10 MG TABLET PO SCH (09:00)
[2018-05-17] MEDS ORDERED: BISACODYL 5 MG TABEC PO PRN (09:04)
== END 2018-05-16 12:16 | disposition home or self-care (01) ==
LOC: 3E 06:15 → ASU 06:15

== ENCOUNTER 2019-01-25 07:43 | Inpatient (IN) ==
--- NOTE | 2018-12-28 16:10 | PAT Medication Instructions ---
Medication Instructions Date of Service December 28, 2018 Home Medications acetaminophen 1,500 mg PO QAM aspirin [Aspirin Low Dose] 162 mg PO QAM cetirizine [Zyrtec] 10 mg PO QAM melatonin 5 mg PO HS PRN omega 4-buo-wjn-fish oil [Fish Oil] 1 cap PO QAM omeprazole 20 mg PO DAILY ASK your prescriber and surgeon aspirin [Aspirin Low Dose] 162 mg PO QAM STOP taking 2 weeks before surgery (or as soon as possible if surgery is within 2 weeks) omega 7-udf-oim-fish oil [Fish Oil] 1 cap PO QAM DO NOT take the morning of surgery cetirizine [Zyrtec] 10 mg PO QAM Take morning of surgery With a small sip of water, OTHERWISE NOTHING TO EAT OR DRINK AFTER MIDNIGHT: acetaminophen 1,500 mg PO QAM (okay to take up to 4 hours prior to surgery if needed) omeprazole 20 mg PO DAILY Take evening before surgery melatonin 5 mg PO HS PRN (if needed) Other Notes If you have any questions please call us at [phone] or [phone] or [phone] or [phone]
--- NOTE | 2018-12-31 14:35 | Anesthesiology Consultation ---
Date of Service December 31, 2018 Assessment & Plan (1) Encounter for pre-operative examination: - Awaiting review preop labs (coags). - Awaiting EKG tracings (received 11/16/18 written report from EKG). - Awaiting surgeon-ordered PCP preop evaluation (Dr. Nadine Centeno). Chart Review Chart Review: Pending: Refer to Additional Notes / Consult section and Patient seen in Pre Admission Testing Consults Requested medical Teaching & Discussion Pre-Anesthesia Teaching/Discussion Notes: Instructed NPO after midnight before surgery,except medications with 15 cc of water. Medication instructions provided according to the PAT guidelines. ASA ASA3 Proposed Anesthesia Anesthesia Type: General Regional History Surgery Operation Date: 01/25/19 09:50 Proposed Procedures p Right Foot Posterior Tibial Tendon Reconstruction with Flexor Digitorum Longus Tendon Transfer, Medializing Calcaneal Osteotomy, Lateral Column Lengthening with Autograft, - DO avi Neumann Percutaneous Tendon Achilles Lengthening, - DO avi Neumann Debridement Callus 3rd Metatarsal Head, - DO avi Neumann Right Iliac Crest Graft [place] with Monocrylolosap for Hip Graft - Felipe Wilson DO Height/Weight Height: 5 ft 2 in Weight: 94.5 kg Allergies Allergy/AdvReac Type Severity Reaction Status Date / Time amoxicillin AdvReac Unknown RASH, GI Verified 12/24/18 15:32 UPSET clavulanic acid AdvReac Unknown RASH GI Verified 12/24/18 15:32 UPSET Medications Home Medications Medication Instructions Recorded Confirmed Last Taken acetaminophen 1,500 mg PO QAM 12/24/18 12/24/18 Unknown aspirin [Aspirin Low Dose] 162 mg PO QAM 12/24/18 12/24/18 Unknown cetirizine [Zyrtec] 10 mg PO QAM 12/24/18 12/24/18 Unknown melatonin 5 mg PO HS PRN 12/24/18 12/24/18 Unknown omega 4-pdf-tpj-fish oil [Fish Oil] 1 cap PO QAM 12/24/18 12/24/18 Unknown omeprazole 20 mg PO DAILY 12/24/18 12/24/18 Unknown Past Medical History Medical History Acid reflux controlled Flat foot Hiatal hernia History of DVT (deep vein thrombosis) LLE DVT (post-op) 03/2017- on AC x 3 months History of diverticulosis Obese Exercise / Class Metabolic Activity III < 4 Walking/Shop/Light housework Past Family History Family History Grandmother Family history of pancreatic cancer Other Family history of skin cancer Past Surgical History Surgical History History of colonoscopy History of esophagogastroduodenoscopy (EGD) History of foot surgery RECONSTRUCTIVE LEFT - LMA #4 History of laparoscopic cholecystectomy History of wisdom tooth extraction Hx of cervical spine surgery Past Anesthesia History No Family Hx of Anesthesia Complications and Other S/P cholecystectomy, patient reports that in recovery, issues with orthostatic hypotension when providers were trying to sit patient up- resolved spontaneously and no further intervention needed/able to discharge same day. No similar issues with other surgeries/anesthesia. History of PONV No Hx of PONV and No Hx of Motion Sickness Social History Smoking Status: Never smoker Do You Dip or Chew Tobacco: No Hx Alcohol Use: No Hx Substance Use: No substance use type: does not use Review of Systems Controlled reflux. Sinus infection improved with abx. Patient denies chest pain, shortness of breath, cough, wheezing, palpitations. Physical Exam Vital Signs VITALS BP 135/78 P 78 TEMP 98.8 SP02 98%RA RESP 18 PHYSICAL Full neck and c-spine range of motion. Full TMJ range of motion. TMD 3.5 finger breaths Mallampati Score 1 Dentition: intact, crowns on molars Lungs: clear throughout to auscultation Cardiac: regular rate and rhythm, no murmurs noted Spine: normal Carotid arteries: negative bruit Extremities: no edema Testing Laboratory Results PT 10.4 Seconds (9.0-12.0) 12/31/18 14:16 INR 1.0 (0.9-1.1) 12/31/18 14:16 APTT 26.3 Seconds (21.0-31.0) 12/31/18 14:16 11/16/18 WBC 8.54 H/H 12.5/37.8 PLT 332 Electrocardiogram EK04/18/18: + NSR @ (89) and + no change from (11/28/17). EK11/16/18: NSR at 82bpm (per written report) Chest X-Ray Date: 11/16/18 Findings: + NAD
[2018-12-31 15:32] LABS: Partial Thromboplastin Time 26.3 Seconds (21.0-31.0); Prothrombin Time 10.4 Seconds (9.0-12.0)
--- NOTE | 2019-01-24 21:12 | History & Physical Report ---
Date of Service January 24, 2019 Assessment & Plan (1) Pes planus of right foot: Schedule a Right Foot Posterior Tibial Tendon Reconstruction with Flexor Digitorum Longus Tendon Transfer, Medializing Calcaneal Osteotomy, Lateral Column Lengthening with Autograft, right iliac crest bone graft harvest with monocryl closure, Percutaneous Tendon Achilles Lengthening, Debridement Callus 3rd Metatarsal Head for 01.25.19. All potential risks, benefits, complications, alternatives, and rehab have been discussed with the patient and she wishes to proceed. She will be d/c'd home on Lovenox vs. Xarelto for 6 wks for DVT prophylaxis. (2) Posterior tibial tendinitis, right leg: (3) Achilles tendon contracture, right: (4) Callus of foot: History of Present Illness Chief Complaint: right ankle pain and deformity Primary Care Provider: Tyson Centeno This is a patient with chronic and worsening right painful flat foot. She had been treated conservatively with bracing and PT but she has failed all conservative management. She is now being set up for surgical management. Allergies Allergy/AdvReac Type Severity Reaction Status Date / Time amoxicillin AdvReac Unknown RASH, GI Verified 12/24/18 15:32 UPSET clavulanic acid AdvReac Unknown RASH GI Verified 12/24/18 15:32 UPSET Home Medications Home Medications Medication Instructions Recorded Confirmed Type acetaminophen 1,500 mg PO QAM 12/24/18 12/24/18 History aspirin [Aspirin Low Dose] 162 mg PO QAM 12/24/18 12/24/18 History cetirizine [Zyrtec] 10 mg PO QAM 12/24/18 12/24/18 History melatonin 5 mg PO HS PRN 12/24/18 12/24/18 History omega 1-fyn-ftb-fish oil [Fish Oil] 1 cap PO QAM 12/24/18 12/24/18 History omeprazole 20 mg PO DAILY 12/24/18 12/24/18 History Past Med/Surg History Medical History (Updated 01/24/19 @ 21:11 by Mario Driscoll PA-C) Acid reflux controlled Flat foot Hiatal hernia History of diverticulosis History of DVT (deep vein thrombosis) LLE DVT (post-op) 03/2017- on AC x 3 months Obese Surgical History History of colonoscopy History of esophagogastroduodenoscopy (EGD) History of foot surgery RECONSTRUCTIVE LEFT - LMA #4 History of laparoscopic cholecystectomy History of wisdom tooth extraction Hx of cervical spine surgery Family History Grandmother Family history of pancreatic cancer Other Family history of skin cancer Social History Preferred Language: Indonesian Communication Ability: Effective Commissions Coordinator Required: No Beliefs That Will Affect Care: None Current Living Situation: Family Feels Safe at Home: Yes Safety Concerns: Feels Safe At This Time Smoking Status: Never smoker Do You Dip or Chew Tobacco: No ; Second Hand Exposure: No ; Hx Alcohol Use: No Hx Substance Use: No Physical Exam Constitutional: well developed and well nourished; no acute distress ENMT: external ear and nose normal, oropharynx normal Neck: trachea midline, no thyromegaly Respiratory: normal respiratory effort, lungs clear to auscultation Cardiovascular: Rate/Rhythm: regular rate and regular rhythm Gastrointestinal (Abdomen): normal bowel sounds, soft, nontender, no hepatosplenomegaly Musculoskeletal: Gait: + antalgic gait (right) Shoulder: + joint line tenderness (right Posterior tibial tendon and sinus tarsi) Ankle: + ankle abnormal to inspection (right pes planovalgus deformity, hindfoot swelling), + limited ROM of ankle (right dorsiflexion) and + joint line tenderness (right Posterior tibial tendon and sinus tarsi); no skin erythema and no ecchymosis Skin: no rashes, warm and dry Neurologic: normal touch/pain/proprioception Psychiatric: A+Ox3, euthymic affect Lymphatic: no cervical or axillary lymphadenopathy
[~2019-01-25 07:43] MED LIST changes: -ACETAMINOPHEN 500 MG TAB PO SCH; -CEFAZOLIN 2000MG 2,000 MG/15 ML SYR IV SCH; +CLINDAMYCIN 600 MG/54 ML BAG IV SCH; -CeleBREX 200 MG CAP PO SCH; -GABAPENTIN 300 MG x 3 PO SCH; +ROPIVACAINE 0.5% 5 MG/ML 30 ML VIAL ONE
--- NOTE | 2019-01-25 08:10 | History & Physical Bridge Note ---
Date of Service January 25, 2019 History & Physical Bridge Note I have examined the patient, reviewed the History & Physical and in the interval since the performance of the History & Physical I have noted the following changes of clinical significance: no changes noted
[2019-01-25] MEDS ORDERED: MIDAZOLAM HCL 1 MG/ML 2ML VIAL ONE ×2 (08:18→08:19)
[2019-01-25] MEDS ORDERED: fentaNYL citrate 100 MCG/2 ML VIAL ONE ×4 (08:22→14:26)
[2019-01-25] MEDS ORDERED: ONDANSETRON INJ 2 MG/ML 2 ML VIAL ONE (08:24)
[2019-01-25] MEDS ORDERED: LIDOCAINE HCL 2% 2 ML VIAL/AMP(20MG/ML) INFIL ONE (08:24)
[2019-01-25] MEDS ORDERED: PROPOFOL IV EMULSION 10 MG/ML 20 ML VIAL IV ONE (08:24)
[2019-01-25] MEDS ORDERED: fentaNYL citrate 100 MCG/2 ML VIAL IV PRN (08:26)
[2019-01-25] MEDS ORDERED: ePHEDrine sulfate 50 MG/ML AMP IV PRN (08:26)
[2019-01-25] MEDS ORDERED: ONDANSETRON INJ 2 MG/ML 2 ML VIAL IV PRN ×2 (08:26→15:02)
[2019-01-25] MEDS ORDERED: ATROPINE SULFATE 0.1 MG/ML 10ML SYR IV PRN (08:26)
[2019-01-25 08:27] LABS: Pregnancy Test, Urine Negative (Negative)
[2019-01-25] MEDS ORDERED: DEXAMETHASONE SOD INJ 4 MG/ML VIAL ONE (09:17)
[2019-01-25] MEDS ORDERED: BACITRACIN INJ 50,000 UNIT VIAL ONE (10:34)
[2019-01-25] MEDS ORDERED: EPINEPHrine INJ 1 MG/ML AMP ONE (11:08)
[2019-01-25] MEDS ORDERED: BUPIVACAINE 0.5 % 5 MG/1 ML MPF 30ML VIAL ONE (11:09)
[2019-01-25] MEDS ORDERED: THROMBIN FOR SOLN 20000 UNIT KIT ONE (11:09)
[2019-01-25] MEDS ORDERED: GELATIN SPONGE SZ 100 ONE (11:09)
[2019-01-25] MEDS ORDERED: MoRPHine SULFATE PF 1 MG/ML 10 ML AMP/VIAL ONE (11:24)
[2019-01-25] MEDS ORDERED: MoRPHine SULFATE 2 MG/ML CARP IM PRN (13:24)
--- NOTE | 2019-01-25 13:55 | Fluoroscopy Report ---
FL foot RT 2V CLINICAL HISTORY: Postoperative evaluation. COMPARISON STUDY: None. FLUOROSCOPY TIME: 10.6 seconds. FLUOROSCOPIC IMAGES: 5 FINDINGS: These images demonstrate surgical gamal over the distal Achilles. Calcaneal osteotomies a re noted, fixated by cannulated screws. Hardware is intact. There are no unexpected radiopaque foreig n bodies. IMPRESSION: Postoperative findings within the right hindfoot, as described above. Electronically signed by: Steven Sahu M.D. 01/25/2019 1:53 PM
--- NOTE | 2019-01-25 14:16 | Post Operative Brief Note ---
Immediate Post Op Note v1 Date of Surgery January 25, 2019 Pre & Post Diagnosis Operation Date: 01/25/19 09:50 Pre-Op Diagnosis: Posterior Tibialis Tendon Dysfunction, Right Foot Pes Planovalgus, Achilles Contracture, third metatarsal phalangeal joint contracture, third metatarsalgia Post-Op Diagnosis: Posterior Tibialis Tendon Dysfunction, Right Foot Pes Planovalgus, Achilles Contracture, third metatarsal phalangeal joint contracture, third metatarsalgia, plantar hypertrophic callus third metatarsal head I identified the patient and participated in the time-out.: Yes Procedure Operation Date: 01/25/19 09:50 Actual Procedures p Right Foot Posterior Tibial Tendon debridement and advancement with [employer]-Ten[employer] screw and Endobutton, Medializing Calcaneal Osteotomy, Lateral Column Lengthening with Autograft,(Right) - Felipe Wilson DO s Percutaneous Tendon Achilles Lengthening,(Right) - Felipe Wilson DO s Debridement Callus 3rd Metatarsal Head, Plantar Condylectomy third metatarsal bone; 3rd Metarsal Phalangeal Joint Capsulotomy(Right) - Felipe Wilson DO s Right Iliac Crest autograft [place] (Right) - Felipe Wilson DO Surgeon Felipe Wilson DO Full Stack Net Developer Mario Driscoll PA-C and Hitesh Seth PA-C Estimated Blood Loss 2 Findings Consistent with Post-Op Diagnosis Specimens None Anesthesia Type General Regional Complications none Disposition Accompanied Patient To Recovery: Yes Disposition: Recovery Room
[2019-01-25] MEDS ORDERED: ACETAMINOPHEN 1000 MG/100 ML IV IV ONE (14:59)
[2019-01-25] MEDS ORDERED: MAGNESIUM HYDROXIDE SUSP 30 ML UDC PO PRN (15:02)
[2019-01-25] MEDS ORDERED: ALUMINUM/MAGNESIUM SUSP 30 ML UDC PO PRN (15:02)
[2019-01-25] MEDS ORDERED: METOCLOPRAMIDE HCL INJ 5 MG/ML 2 ML VIAL IV PRN (15:02)
[2019-01-25] MEDS ORDERED: NON-FORMULARY MEDICATION (Melatonin 5 MG) PO PRN (15:02)
[2019-01-25] MEDS ORDERED: BISACODYL 10 MG SUPP PR PRN (15:02)
[2019-01-25] MEDS ORDERED: NO NSAIDS SCH (15:02)
[2019-01-25] MEDS ORDERED: SODIUM CHLORIDE 0.9% 1000ML 1,000 ML IV SCH (15:02)
[2019-01-25] MEDS ORDERED: NALOXONE HCL 0.4 MG/1 ML VIAL/CARP IV PRN (15:02)
--- NOTE | 2019-01-25 15:38 | XRay Report ---
XR ankle RT 2V, XR foot RT min 3V routine CLINICAL HISTORY: post-op COMPARISON STUDY: None. FINDINGS: Overlying splint material obscures fine bony detail. Skin gamal are again noted along the posterior ankle. Calcaneal osteotomies fixated by cannulated screws. The hardware appears intact. Th e alignment appears near anatomic. There is also metallic anchor at the navicular bone. IMPRESSION: Postoperative changes as described above within the hindfoot. No evidence for hardware c omplication. Electronically signed by: Raheem Mijares M.D. 01/25/2019 3:36 PM
--- NOTE | 2019-01-25 16:06 | Anesthesiology Progress Note ---
Date of Service January 25, 2019 Anesthesia Post Procedure Vital Signs Vital Signs: Temp Pulse Pulse Resp BP Pulse Ox 01/25/19 15:35 99.9 F H 84 16 142/94 H 98 01/25/19 15:25 97 H 16 159/81 H 100 01/25/19 15:15 87 15 159/81 H 93 01/25/19 15:05 88 15 138/98 100 01/25/19 14:55 86 15 125/91 100 01/25/19 14:45 85 15 126/91 100 01/25/19 14:35 88 15 142/90 H 96 01/25/19 14:25 88 15 139/99 100 01/25/19 14:18 98.1 F 98 H 12 135/97 100 01/25/19 10:35 76 16 109/68 100 01/25/19 10:25 72 16 110/67 99 01/25/19 10:15 74 16 104/63 100 01/25/19 10:05 69 16 107/61 100 01/25/19 09:55 67 16 108/67 100 01/25/19 09:45 66 16 112/57 L 100 01/25/19 08:33 98.6 F 75 18 121/76 98 Pain Intensity Right Foot: Pain Intensity: 8 Transfer of Care Handoff Completed per policy Notes Mental Status: alert / awake / arousable and participated in evaluation Patient Amnestic to Procedure: Yes Nausea / Vomiting: adequately controlled Pain: adequately controlled Airway Patency, RR, SpO2: stable & adequate BP & HR: stable & adequate Hydration State: stable & adequate Anesthetic Complications: no major complications apparent and Pt Satisfied with anesthetic care
[2019-01-25] MEDS: HYDROmorphone INJ 0.5 MG/0.5 ML SYR IV PRN ×2 (16:13→20:30)
[2019-01-25] MEDS: OXYCODONE HCL IR 5 MG TAB (IMMEDIATE RELEASE) PO PRN ×2 (17:32→22:19)
[2019-01-25] MEDS: CLINDAMYCIN 600 MG in DEXTROSE 5% 50 ML IV SCH (18:35)
--- NOTE | 2019-01-25 19:34 | Operative Report ---
DATE OF OPERATION: 01/25/2019 PREOPERATIVE DIAGNOSES: 1. Right foot posterior tibial tendon dysfunction grade 2 with distal tearing of the tendon. 2. Painful Pes planus. 3. Achilles tendon contracture. 4. Right third metatarsalgia. 5. Third metatarsal head callus. 6. Third metatarsophalangeal joint contracture. POSTOPERATIVE DIAGNOSES: 1. Right foot posterior tibial tendon dysfunction grade 2 with distal tearing of the tendon. 2. Painful Pes planus. 3. Achilles tendon contracture. 4. Right third metatarsalgia. 5. Third metatarsal head callus. 6. Third metatarsophalangeal joint contracture. PROCEDURES: 1. Right foot posterior tibial tendon debridement and advancement using an Arthrex Bio-Tenodesis screw and Endobutton. 2. Medialized and calcaneal osteotomy with screw fixation. 3. Lateral column lengthening procedure with application of autograft. 4. Percutaneous tendo Achilles lengthening. 5. Right iliac crest bone graft harvest. 6. Right third metatarsal head plantar condylectomy. 7. Third metatarsophalangeal joint capsulotomy. 8. Debridement of callus plantar right third metatarsal head. SURGEON: Felipe Wilson DO. DIRECTOR ELECTRONICS: Mario Driscoll PA-C as well as BRANDY Solorzano who were present for patient positioning, sterile prep and drape, management of retractors and instruments. They were present through the critical portions of the case including wound closure, application of sterile dressing and transport of the patient to recovery. ANESTHESIA: General, regional. SPECIMENS: None. DRAINS: None. COMPLICATIONS: None. BLOOD LOSS: 2 mL. PERTINENT HISTORY: This is a 38-year-old woman who has had progressive chronic and worsening right hindfoot pain and deformity. She developed a limitation in her walking ability, strength and worsening contour of her foot. More and more difficulty with wearing shoes. She had failed physical therapy, physician-directed home exercises, topical and oral anti-inflammatories and steroids. She attempted and failed the use of orthotics and braces. Radiographs and MRI demonstrate posterior tibial tendon tearing distally with posterior tibial tendon dysfunction Pes planus. The patient was then scheduled for surgery as indicated. DESCRIPTION OF PROCEDURE: The patient was taken to the operative suite. The consent was reviewed and surgical site was identified. The patient had undergone a general, regional anesthetic and then transferred to the Operating Room table. Tourniquet was placed high in the right thigh over cast padding. Right iliac crest and right lower extremity were then sterilely prepped and draped in usual fashion. The right lower extremity was then elevated and exsanguinated with Esmarch bandage, tourniquet inflated to 350 mmHg. Next, right foot was held in dorsiflexion. 11 blade scalpel was used to perform a three part percutaneous tendo Achilles lengthening and then the small stab incisions were then closed with a skin stapler. Next, a 15 blade scalpel was used to make an incision in oblique fashion on the lateral aspect of the right calcaneus. The incision was deepened to subcutaneous tissue. Meticulous hemostasis with electrocautery. Full thickness flaps were developed. Next, periosteum was elevated with small periosteal elevator. Hohmann retractors were placed and a sagittal saw was used to perform the osteotomy in the posterior aspect of the calcaneus. Tuberosity was then shifted medially and then stabilized with a guide pin from the 7.3 mm cannulated screw set under fluoroscopic control. Next, a short thread 7.3 mm cannulated screw of appropriate length was then placed over the guide pin and then used to compress the osteotomy under fluoroscopic control. Next, the guide pin was removed. The wound was irrigated with sterile Normal Saline and the dermis was closed using buried 3-0 Vicryl sutures and the skin was closed using 4-0 Nylon. Next, a 15 blade scalpel incision was made over the anterior process of the calcaneus and lateral calcaneus, the incision deepened through subcutaneous tissue, meticulous hemostasis with electrocautery. The extensor digitorum brevis was identified, incised and then elevated both superiorly and inferiorly. Peroneal tendon sheath was elevated and Hohmann retractors were placed in the sinus tarsi and then the inferior aspect of the calcaneus. A sagittal saw was used to make an osteotomy approximately 1.5 cm proximal to the calcaneal cuboid joint. Smooth osteotomes were placed into the osteotomies to open the osteotomy site and then a cervical lamina support specialist was placed in the opening. The opening of appropriate width was then measured and the cervical lamina support specialist was then removed from the osteotomy and a moist lap was placed over the foot. Next, after injection of the right iliac crest with approximately 15 cc of 0.5% Marcaine with Epinephrine a 15 blade scalpel incision was made over the iliac crest approximately 1 cm proximal to the ASIS. This was deepened to subcutaneous tissue with electrocautery down to the level of the fascia. Fascia was incised in line with the skin incision and then the iliac crest was clearly visualized, soft tissue and fascia was elevated medially and laterally. Small Bell retractors were placed in the inner and outer table of the iliac crest. It was irrigated with sterile Normal Saline. Appropriate length of bone wedge was measured and marked with electrocautery and then a sagittal saw was used to resect the appropriate width trapezoidal tricortical graft from the pelvis. Next, after irrigation and suction the graft was then placed on the back table and a small amount of cancellous graft was excised from the iliac crest. The wound was then finally irrigated with Sterile Normal Saline. The defect in the iliac crest was then packed with Gelfoam and Thrombin. This was then closed with the fascia overlying the iliac crest with #1 Vicryl sutures. Next, this was injected with 1 cc of Duramorph and 5 cc of 0.5% Marcaine with Epinephrine. The dermis was closed using buried interrupted 2-0 Vicryl sutures and the skin was closed using skin gamal. Approximately 5 more cc of 0.5% Marcaine with Epinephrine was injected. No oozing or bleeding was encountered and a sterile compressive dry dressing was applied overwrapped with an OpSite. Next, the graft was then placed in the lateral osteotomy of the foot to lengthen the lateral column using a cervical lamina support specialist to span the osteotomy. After the graft was tamped in place with a bone tamp and mallet the cervical lamina support specialist was removed. Next, the adjacent bone graft obtained from the iliac crest was then packed around the tricortical graft and then the graft was then stabilized with a single fully threaded 4.0 mm small fragment screw placed under lag technique compressing the graft in place. Next, the 2-0 Vicryl suture was used to close the extensor digitorum brevis and the dermis was closed using buried interrupted 3-0 Vicryl. Skin was closed using 4-0 Nylon sutures. Next, a 15 blade scalpel was used to make a long curvilinear incision along the medial aspect of the hind foot overlying the posterior tibial tendon. The incision was deepened to subcutaneous tissue. Meticulous hemostasis achieved with electrocautery. The incision was extended to the first metatarsal head. Next, after incision of the lacinate ligament the flexor retinaculum was encountered. This was incised in line with skin incision overlying the posterior tibial tendon. The posterior tibial tendon was clearly visualized. Tenotomy scissors were then used to complete the release of the flexor retinaculum and the posterior tibial tendon was then elevated sharply with combination of electrocautery and 15 blade scalpel from its insertion on the navicular. The damaged portion of the tendon distally was then resected and then a whip stitch was placed with 0 Ethibond suture in the distal aspect of the posterior tibial tendon. Next, dissection was continued in the mid foot in the interval between the first metatarsal and the abductor hallucis. A Melita retractor was placed in the wound and then after careful dissection the master knot of Jay was released and the flexor digitorum longus and flexor hallucis longus were clearly visualized distally. Tenodesis was performed with interrupted 0 Ethibond suture with toes held in neutral alignment in line with the metatarsals. Next, a whip stitch was placed in the distal aspect of the FDL tendon and then the FDL was then released distally to allow it to be retracted proximally posterior to the medial malleolus after a small cut was made in the FDL sheath posterior to the medial malleolus. After the tendon was withdrawn posteriorly, the soft tissues were elevated from the medial navicular and a 4.5 mm drill hole was made in the medial navicular. A Mims suture passer was used to transfer the tendon from the plantar to the dorsal aspect of the navicular. It was then sutured back down to itself using a sharp tendon passer and a Pulvertaft weave technique with #2 fiber wire suture. Several passes were made and then this was then incorporated into the posterior tibial tendon. Next, free needle was used to tie the ends of the posterior tibial tendon and FDL tendon into the adjacent tendons. Sutures were then tied and cut. The wound was irrigated with Sterile Normal Saline. Deep drain was placed, a #10 Arabic single Hemovac drain medially and then the flexor sheath was closed using interrupted 2-0 Vicryl sutures. The interval between the first metatarsal and the abductors were closed using interrupted 2-0 Vicryl sutures. The dermis was closed using buried interrupted 3-0 Vicryl suture and skin closed with 4-0 Nylon. A sterile compressive Kimani Tidwell plaster splint was applied and wrapped with an Mike wrap with the foot held in slight equinus and inversion. The tourniquet was released, patient awakened and taken to recovery in stable condition. I attest to the content of the Intraoperative Record and any orders documented therein. Any exception s are noted below.
[2019-01-25] MEDS: DOCUSATE SODIUM 100 MG CAP PO SCH (20:33)
[2019-01-25] MEDS ORDERED: SENNA 8.6 MG TAB PO SCH (21:00)
[2019-01-25] MEDS: ACETAMINOPHEN 500 MG TAB PO SCH (21:02)
[2019-01-26] MEDS: HYDROmorphone INJ 0.5 MG/0.5 ML SYR IV PRN ×2 (00:47→10:54)
[2019-01-26] MEDS: OXYCODONE HCL IR 5 MG TAB (IMMEDIATE RELEASE) PO PRN ×2 (03:58→08:08)
[2019-01-26] MEDS: CLINDAMYCIN 600 MG in DEXTROSE 5% 50 ML IV SCH (03:59)
[2019-01-26] MEDS ORDERED: INFLUENZA VIRUS QUAD VACCINE 0.5 ML SYR IM ONE (05:30)
[2019-01-26] MEDS ORDERED: INFLUENZA ADMINISTRATION CHARGE ONE (05:30)
[2019-01-26 05:51] LABS: Hematocrit (blood only) 34.3 % (37-47); Hemoglobin 11.2 g/dL (12.0-16.0); Mean Corpuscular Hemoglobin 29.9 pg (25-34); Mean Corpuscular Hgb Conc 32.7 g/dL (32-36); Mean Corpuscular Volume 91.5 fL (80-100); Mean Platelet Volume 10.4 fL (7.4-10.4); Platelet Count 333 K/uL (130-400); RDW Coefficient of Variation 13.4 % (11.5-14.5); RDW Standard Deviation 44.8 fL (36.4-46.3); Red Blood Count 3.75 M/uL (4.2-5.4); White Blood Count 13.04 K/uL (4.8-10.8)
[2019-01-26] MEDS: ACETAMINOPHEN 500 MG TAB PO SCH (06:03)
[2019-01-26 06:27] LABS: BUN Creatinine Ratio 10.8 (10-20); Calcium 8.5 mg/dl (8.5-10.1); Creatinine Clr Calc Pharmacy 118.5 ml/min; Est GFR (African American) 128.3; Est GFR (Non-African American) 110.7; Potassium 3.5 mmol/L (3.5-5.1)
--- NOTE | 2019-01-26 08:04 | Orthopedic Progress Note ---
Date of Service January 26, 2019 Assessment & Plan (1) Pes planus of right foot: POD #1 s/p 1. Right foot posterior tibial tendon debridement and advancement using an Arthrex Bio-Tenodesis screw and Endobutton. 2. Medialized and calcaneal osteotomy with screw fixation. 3. Lateral column lengthening procedure with application of autograft. 4. Percutaneous tendo Achilles lengthening. 5. Right iliac crest bone graft harvest. 6. Right third metatarsal head plantar condylectomy. 7. Third metatarsophalangeal joint capsulotomy. 8. Debridement of callus plantar right third metatarsal head NWB RLE at all times. Xarelto 10 mg QD x 30 days for DVT prophylaxis. PT/OT today for gait training. Pain control Plan for d/c home today. (2) Posterior tibial tendinitis, right leg: (3) Achilles tendon contracture, right: (4) Callus of foot: Subjective Pain is controlled in the right ankle. States she has a tingling type of pain right now. Feels she would move her toes better yesterday than today. Right pelvis surgical site pain is much better today than it was POD #1 on the left side earlier this year. Denies CP, SOB, LH, calf pain. Physical Exam Constitutional: well developed and well nourished; no acute distress ENMT: external ear and nose normal, oropharynx normal Neck: trachea midline, no thyromegaly Respiratory: normal respiratory effort, lungs clear to auscultation Cardiovascular: Rate/Rhythm: regular rate and regular rhythm Gastrointestinal (Abdomen): normal bowel sounds, soft, nontender, no hepatosplenomegaly Musculoskeletal: Ankle: + surgical incision (right ankle: splint is C/D/I. Toes are mobile. ); no skin erythema and no ecchymosis Skin: no rashes, warm and dry Neurologic: normal touch/pain/proprioception Psychiatric: A+Ox3, euthymic affect Lymphatic: no cervical or axillary lymphadenopathy Results & Data Vital Signs (Past 12 Hours) Vital Signs Temp Pulse Resp BP Pulse Ox 01/26/19 03:55 36.7 C 81 18 103/67 98 01/25/19 23:47 36.7 C 81 16 110/71 97
[2019-01-26] MEDS: DOCUSATE SODIUM 100 MG CAP PO SCH (08:29)
[2019-01-26] MEDS ORDERED: ASPIRIN 81 MG ECTAB PO SCH (09:00)
[2019-01-26] MEDS ORDERED: RIVAROXABAN 10 MG TABLET PO SCH (09:00)
[2019-01-26] MEDS ORDERED: CETIRIZINE HCL 10 MG TABLET PO SCH (09:00)
[2019-01-26] MEDS ORDERED: OMEGA-3 (PURIFIED FISH OIL) 1 GM CAP PO SCH (09:00)
[2019-01-26] MEDS ORDERED: PANTOprazole 40 MG TAB PO SCH (09:00)
[2019-01-26] MEDS ORDERED: MULTIVITAMIN TAB PO SCH (09:00)
--- NOTE | 2019-01-30 15:00 | Discharge Summary ---
Date of Service January 30, 2019 Admission HPI Per Admitting Provider This is a patient with chronic and worsening right painful flat foot. She had been treated conservatively with bracing and PT but she has failed all conservative management. She is now being set up for surgical management. Principal Diagnosis right posterior tibial tendon dysfunction Discharge Exam Constitutional well developed and well nourished; no acute distress ENMT external ear and nose normal, oropharynx normal Neck trachea midline, no thyromegaly Respiratory normal respiratory effort, lungs clear to auscultation Cardiovascular Rate/Rhythm: regular rate and regular rhythm Gastrointestinal (Abdomen) normal bowel sounds, soft, nontender, no hepatosplenomegaly Musculoskeletal Gait: + antalgic gait (right) Ankle: + surgical incision (right ankle: splint is C/D/I. Toes are mobile. ); no skin erythema and no ecchymosis Skin no rashes, warm and dry Neurologic normal touch/pain/proprioception Psychiatric A+Ox3, euthymic affect Lymphatic no cervical or axillary lymphadenopathy Discharge Data Allergies Allergy/AdvReac Type Severity Reaction Status Date / Time amoxicillin AdvReac Unknown RASH, GI Verified 01/25/19 08:29 UPSET clavulanic acid AdvReac Unknown RASH GI Verified 01/25/19 08:29 UPSET Consultations 01/25/19 15:02 Consult Case Management - Discharge Planning Routine Procedures Performed Operation Date: 01/25/19 09:50 Actual Procedures p Right Foot Posterior Tibial Tendon Reconstruction with Flexor Digitorum Longus Tendon Transfer, Medializing Calcaneal Osteotomy, Lateral Column Lengthening with Autograft,(Right) - DO avi Neumann Percutaneous Tendon Achilles Lengthening,(Right) - DO avi Neumann Debridement Callus 3rd Metatarsal Head, Plantar Condylectomy; 3rd Metarsal Phalangeal Joint Capsulotomy(Right) - Felipe Wilson DO s Right Iliac Crest Graft [place] with Monocryl for Hip Graft(Right) - Felipe Wilson DO Ordered Studies 01/25/19 05:00 US - OR guided needle placemen Routine 01/25/19 09:50 FL fluoroscopy <1hr Routine FL foot RT 2V Routine Hospital Course (1) Pes planus of right foot: The patient was admitted for pain control of the right foot and pelvis after undergoing the noted procedure. On POD #1, her pain was controlled and she was maintaining her NWB status on the RLE. She was later d/c'd home. POD #1 s/p 1. Right foot posterior tibial tendon debridement and advancement using an Arthrex Bio-Tenodesis screw and Endobutton. 2. Medialized and calcaneal osteotomy with screw fixation. 3. Lateral column lengthening procedure with application of autograft. 4. Percutaneous tendo Achilles lengthening. 5. Right iliac crest bone graft harvest. 6. Right third metatarsal head plantar condylectomy. 7. Third metatarsophalangeal joint capsulotomy. 8. Debridement of callus plantar right third metatarsal head NWB RLE at all times. Xarelto 10 mg QD x 30 days for DVT prophylaxis. PT/OT today for gait training. Pain control Plan for d/c home today. (2) Posterior tibial tendinitis, right leg: (3) Achilles tendon contracture, right: (4) Callus of foot: Total Time Total Time Spent Total Time Spent (In Minutes): 30 Total Time Includes: Examination of the Patient, Discharge Planning and Medication Reconciliation Discharge Plan Discharge Items Patient Disposition: Home - Self-Care Reason For Visit: Right Foot Pes Planovalgus, Achilles Contracture Discharge Diagnosis: right pes planovalgus deformity Activity: Per Instructions section Weightbearing: Right non-weightbearing Non-emergency contact: Surgeon Call non-emergency contact if: your pain is not controlled, your pain is worsening and your temperature is above 101 Follow-up/Referrals: Tyson Centeno DO [Primary Care Provider] - Diet: Regular Addtl Attending Provider Instructions: ACTIVITY RECOMMENDATIONS: Limitations: No weight bearing to affected limb at all times. SPECIAL CARE INSTRUCTIONS: * You have started Xarelto 10 mg daily for blood clot prophylaxis in the hospital. You will continue it for 30 days. * Some drainage onto the dressing is normal and is no cause for alarm. * Some swelling is natural especially after walking. * When resting, keep your foot elevated above the level of your heart. * Call [facility] if you notice: -Increased drainage -Fever over 101 degrees F -Severe constant pain BANDAGE: * Leave bandage/cast in place unless otherwise directed. * Keep bandage/cast dry at all times. FOLLOW UP VISIT WITH DR. WILSON If appointment is not already scheduled: Please call [facility] after you get home today to schedule a follow-up appointment for [address] Wilson at . Pending Studies at Discharge: No Stand-Alone Forms: My [facility], Opioid Pain Management, Smoking Cessation Medications and DC Order Prescriptions: New Xarelto 10 mg Tablet 10 mg PO DAILY 30 Days Qty: 30 RF: 0 acetaminophen [Tylenol Extra Strength] 500 mg Tablet 1,000 mg PO Q8 Qty: 100 RF: 0 oxycodone 5 mg Tablet 5 - 10 mg PO Q4H PRN (Reason: pain) Qty: 30 RF: 0 Continued cetirizine [Zyrtec] 10 mg Tablet 10 mg PO QAM RF: 0 aspirin [Aspirin Low Dose] 81 mg Tablet,Delayed Release (Dr/Ec) 162 mg PO QAM RF: 0 omeprazole 20 mg Tablet,Delayed Release (Dr/Ec) 20 mg PO DAILY RF: 0 omega [id number] oil [Fish Oil] 1,000 mg (120 mg-180 mg) Capsule 1 cap PO QAM RF: 0 melatonin 5 mg Capsule 5 mg PO HS PRN (Reason: Sleep) RF: 0 Discontinued acetaminophen 500 mg Tablet 1,500 mg PO QAM RF: 0 Discharge Orders: Discharge Order (Routine); Ordered 01/26/19 Ordered By: Mario Driscoll Admission Data Admit Date/Time: 01/25/19 14:18 Attending Provider: Felipe Wilson Admit Provider: Felipe Wilson Primary Care Provider: Tyson Centeno Other Interventions: Discharge Summary Assessment (RN) Last Done: 01/26/19 10:34 DC Date/Time DO NOT enter until pt leaves facility: 01/26/19 12:29
== END 2019-01-26 12:29 | disposition home or self-care (01) | DRG 494 ==
LOC: ASU 07:43 → 3E 14:18